=== PATIENT | female | born 1980 | race Two or more races ===

== ENCOUNTER 2016-07-15 02:14 | Emergency (ER) | payer MEDICAID ==
[2016-07-15 05:56] LABS: ABSOLUTE EOSINOPHILS # (AUTO) 0.4 10^3/uL (0.0-0.6); ABSOLUTE LYMPHOCYTES (AUTO) 2.2 10^3/uL (0.5-4.7); ABSOLUTE MONOCYTES (AUTO) 0.7 10^3/uL (0.1-1.4); ABSOLUTE NEUT (AUTO) 4.9 10^3/uL (1.7-8.2); BASOPHILS % (AUTO) 0.5 % (0-2); EOSINOPHILS % (AUTO) 4.6 % (0-6); HEMATOCRIT 39.5 % (36.0-47.0); HEMOGLOBIN 13.7 g/dL (12.0-15.5); HGB HCT DIFFERENCE 1.6; LYMPHOCYTES % (AUTO) 26.2 % (13-45); MEAN CORPUSCULAR HEMOGLOBIN 31.9 pg (27.0-33.4); MEAN CORPUSCULAR HGB CONC 34.6 g/dL (32.0-36.0); MEAN CORPUSCULAR VOLUME 92 fl (80-97); MONOCYTES % (AUTO) 9.1 % (3-13); RED BLOOD COUNT 4.27 10^6/uL (3.72-5.28); RED CELL DISTRIBUTION WIDTH 12.2 % (11.5-14.0); SEGMENTED NEUTROPHILS % (AUTO) 59.6 % (42-78); WHITE BLOOD COUNT 8.3 10^3/uL (4.0-10.5)
[2016-07-15 06:09] LABS: ALANINE AMINOTRANSFERASE 50 U/L (9-52); ALBUMIN 3.7 g/dL (3.5-5.0); ALKALINE PHOSPHATASE 74 U/L (38-126); ANION GAP 11 (5-19); APPEARANCE,URINE CLEAR; ASPARTATE AMINO TRANSFERASE 41 U/L (14-36); BILIRUBIN,TOTAL 0.7 mg/dL (0.2-1.3); BILIRUBIN,URINE NEGATIVE (NEGATIVE); BLOOD UREA NITROGEN 9 mg/dL (7-20); CALCIUM 9.2 mg/dL (8.4-10.2); CARBON DIOXIDE 25 mmol/L (22-30); CHLORIDE 108 mmol/L (98-107); GLUCOSE 105 mg/dL (75-110); GLUCOSE, URINE NEGATIVE (NEGATIVE); KETONES,URINE NEGATIVE (NEGATIVE); LEUKOCYTE ESTERASE,URINE NEGATIVE (NEGATIVE); LIPASE 207.9 U/L (23-300); NITRITE,URINE NEGATIVE (NEGATIVE); POTASSIUM 3.8 mmol/L (3.6-5.0); PROTEIN,URINE NEGATIVE (NEGATIVE); SODIUM 143.6 mmol/L (137-145); TOTAL PROTEIN 6.8 g/dL (6.3-8.2)
--- NOTE | 2016-07-15 06:31 | ER Document Report ---
ED General - General Chief Complaint: Epigastric Pain Stated Complaint: ABDOMINAL PAIN Mode of Arrival: Ambulatory Information source: Patient Notes: 36-year-old female presents with complaints of epigastric abdominal pain since 2002. Patient denies any fevers or chills denies vomiting blood. Patient notes she ate prior to arrival TRAVEL OUTSIDE OF THE [place] IN LAST 30 DAYS: No - HPI Onset: Other Onset/Duration: Intermittent Quality of pain: Cramping Severity: Mild Pain Level: 1 Associated symptoms: Nausea, Vomiting Exacerbated by: Denies Relieved by: Denies Similar symptoms previously: Yes Recently seen / treated by doctor: Yes - Related Data Allergies/Adverse Reactions: aspirin [Aspirin] Allergy (Verified 07/15/16 02:33) Past Medical History - Social History Smoking Status: Current Every Day Smoker Cigarette use (# per day): Yes Chew tobacco use (# tins/day): No Smoking Education Provided: No Frequency of alcohol use: Occasional Drug Abuse: None Family History: Reviewed & Not Pertinent - Past Medical History Cardiac Medical History: Denies: Hx Coronary Artery Disease, Hx Heart Attack, Hx Hypertension Pulmonary Medical History: Denies: Hx Asthma, Hx Bronchitis, Hx COPD, Hx Pneumonia Neurological Medical History: Denies: Hx Cerebrovascular Accident, Hx Seizures Renal/ Medical History: Denies: Hx Peritoneal Dialysis Musculoskeltal Medical History: Reports Hx Arthritis - Painful Rt wrist/hand (? Carpal tunnel syndrome) Past Surgical History: Reports: Hx Cholecystectomy. Denies: Hx Hysterectomy - Immunizations Immunizations up to date: Yes Hx Diphtheria, Pertussis, Tetanus Vaccination: Yes Review of Systems - Review of Systems Notes: REVIEW OF SYSTEMS: CONSTITUTIONAL : Denies fever, chills, or sweats. Denies recent illness. EENT: Denies eye, ear, throat, or mouth pain or symptoms. Denies nasal or sinus congestion or discharge. Denies throat, tongue, or mouth swelling or difficulty swallowing. CARDIOVASCULAR: Denies chest pain. Denies palpitations or racing or irregular heart beat. Denies ankle edema. RESPIRATORY: Denies cough, cold, or chest congestion. Denies shortness of breath, difficulty breathing, or wheezing. GASTROINTESTINAL: Admits to abdominal pain nausea vomiting GENITOURINARY: Denies difficulty urinating, painful urination, burning, frequency, blood in urine, or discharge. FEMALE GENITOURINARY: Denies vaginal bleeding, heavy or abnormal periods, irregular periods. Denies vaginal discharge or odor. MUSCULOSKELETAL: Denies back or neck pain or stiffness. Denies joint pain or swelling. SKIN: Admits to intermittent hives when she has pain HEMATOLOGIC : Denies easy bruising or bleeding. LYMPHATIC: Denies swollen, enlarged glands. NEUROLOGICAL: Denies confusion or altered mental status. Denies passing out or loss of consciousness. Denies dizziness or lightheadedness. Denies headache. Denies weakness or paralysis or loss of use of either side. Denies problems with gait or speech. Denies sensory loss, numbness, or tingling. Denies seizures. PSYCHIATRIC: Denies anxiety or stress. Denies depression, suicidal ideation, or homicidal ideation. ALL OTHER SYSTEMS REVIEWED AND NEGATIVE. Dictation was performed using [employer] voice recognition software PHYSICAL EXAMINATION: GENERAL: Well-appearing, well-nourished and in no acute distress. Patient sleeping comfortably HEAD: Atraumatic, normocephalic. EYES: Pupils equal round and reactive to light, extraocular movements intact, conjunctiva are normal. ENT: Nares patent, oropharynx clear without exudates. Moist mucous membranes. NECK: Normal range of motion, supple without lymphadenopathy LUNGS: Breath sounds clear to auscultation bilaterally and equal. No wheezes rales or rhonchi. HEART: Regular rate and rhythm without murmurs ABDOMEN: Soft, nontender, nondistended abdomen. No guarding, no rebound. No masses appreciated. Female : deferred Musculoskeletal: Normal range of motion, no pitting or edema. No cyanosis. NEUROLOGICAL: Cranial nerves grossly intact. Normal speech, normal gait. Normal sensory, motor exams PSYCH: Normal mood, normal affect. SKIN: Warm, Dry, normal turgor, no rashes or lesions noted. Physical Exam - Vital signs Vitals: Temp Pulse Resp BP Pulse Ox 98.6 F 95 16 122/78 100 07/15/16 02:44 07/15/16 02:44 07/15/16 02:44 07/15/16 02:44 07/15/16 02:44 Course - Re-evaluation Re-evalutation: 07/15/16 06:29 pt noted to have this pain since 2002, has empty bag of [employer] food next ot her sleeping comfortably when awoken. Given lab work is normally do not expect any life-threatening issues. Patient will be given follow-up with her GI physician for reevaluation After performing a Medical Screening Examination, I estimate there is LOW risk for ACUTE APPENDICITIS, BOWEL OBSTRUCTION, ACUTE CHOLECYSTITIS, PERFORATED DIVERTICULITIS, INCARCERATED HERNIA, PANCREATITIS, PELVIC INFLAMMATORY DISEASE, PERFORATED ULCER, ECTOPIC , or TUBO-OVARIAN ABSCESS, thus I consider the discharge disposition reasonable. Also, there is no evidence or peritonitis , sepsis, or toxicity. The patient and I have discussed the diagnosis and risks , and we agree with discharging home with close follow-up with the understanding that symptoms and presentations can change. We also discussed returning to the Emergency Department immediately if new or worsening symptoms occur. We have discussed the symptoms which are most concerning (e.g., bloody stool, fever, changing or worsening pain, vomiting) that necessitate immediate return. 07/15/16 15:28 - Vital Signs Vital signs: Temp Pulse Resp BP Pulse Ox 98.4 F 82 16 108/55 L 99 07/15/16 06:55 07/15/16 06:55 07/15/16 06:55 07/15/16 06:55 07/15/16 06:55 - Laboratory Result Diagrams: 07/15/16 05:45 07/15/16 05:45 Laboratory results interpreted by me: 07/15/16 07/15/16 05:45 05:45 Chloride 108 H AST 41 H Urine Urobilinogen 2.0 H Discharge - Discharge Clinical Impression: Hives Abdominal pain Qualifiers: Abdominal location: epigastric Qualified Code(s): R10.13 - Epigastric pain Condition: Stable Disposition: HOME, SELF-CARE Instructions: Abdominal Pain ([facility]) Prescriptions: Cimetidine [Acid Manager Process] 200 mg PO BID #60 tablet Hydrocodone/Acetaminophen [[place] 5-325 mg Tablet] 1 tab PO Q6 #10 tablet Forms: Return to Work Referrals: JOSIAS PLATA MD [Primary Care Provider] - Follow up as needed NAHUM SENA MD [ACTIVE STAFF] - Follow up tomorrow
[2016-07-15 06:58] VITALS: BP 108/55
== END 2016-07-15 06:59 | disposition home or self-care (01) ==
LOC: ER 02:14
DX: R10.13 Epigastric pain (principal); L50.9 Urticaria, unspecified; R11.2 Nausea with vomiting, unspecified; F17.210 Nicotine dependence, cigarettes, uncomplicated; Z90.49 Acquired absence of other specified parts of digestive tract
CPT/HCPCS: 36415; 80053; 81001; 83690; 84703; 85025; 87086; 87088; 87186; 99284

== ENCOUNTER 2016-09-05 00:15 | Emergency (ER) | payer MEDICAID ==
[2016-09-05 01:35] VITALS: BP 158/101
== END 2016-09-05 03:30 | disposition left against medical advice (07) ==
LOC: ER 00:15
DX: Z53.21 Procedure and treatment not carried out due to patient leaving prior to being seen by health care provider (principal)

== ENCOUNTER 2016-09-06 15:39 | Inpatient (IN) | payer MEDICAID ==
[2016-09-04] MEDS: DICYCLOMINE HCL 20 MG TABLET PO SCH (10:00)
[2016-09-06] MEDS ORDERED: LIDOCAINE 2% VISCOUS SOLN 20 ML UDCUP PO ONE (16:09)
[2016-09-06] MEDS ORDERED: METOCLOPRAMIDE HCL ORAL SOLN 10 MG/10 ML UDCUP PO ONE (16:09)
[2016-09-06] MEDS ORDERED: MAG HYDROX/AL HYDROX/SIMETH SUSP 30 ML UDCUP PO ONE (16:09)
--- NOTE | 2016-09-06 16:20 | ER Document Report ---
ED GI/ - General Chief Complaint: Abdominal Pain Stated Complaint: ABDOMINAL PAIN Time Seen by Provider: 09/06/16 16:05 Notes: The patient is a 36-year-old female, past medical history chronic epigastric pain, history of cholecystectomy, presents with 2 days of her usual epigastric pain and burning. She was taking her cimetidine prescribed to her by her GI doctor without much relief of her symptoms. She has seen multiple GI doctors for this same pain and has had EGDs. She says that Prilosec does not help. In addition, she is feeling slight nausea, but denies vomiting, back pain, urinary symptoms, fevers, chest pain, shortness of breath or headache. Her last menstrual period was 3 weeks ago. TRAVEL OUTSIDE OF THE [place] IN LAST 30 DAYS: No - Related Data Allergies/Adverse Reactions: aspirin [Aspirin] Allergy (Verified 07/15/16 02:33) Past Medical History - General Information source: Patient - Social History Smoking Status: Unknown if Ever Smoked Family History: Reviewed & Not Pertinent Patient has suicidal ideation: No Patient has homicidal ideation: No - Past Medical History Cardiac Medical History: Denies: Hx Coronary Artery Disease, Hx Heart Attack, Hx Hypertension Pulmonary Medical History: Denies: Hx Asthma, Hx Bronchitis, Hx COPD, Hx Pneumonia Neurological Medical History: Denies: Hx Cerebrovascular Accident, Hx Seizures Renal/ Medical History: Denies: Hx Peritoneal Dialysis GI Medical History: Musculoskeltal Medical History: Reports Hx Arthritis - Painful Rt wrist/hand (? Carpal tunnel syndrome) Infectious Medical History: Past Surgical History: Reports: Hx Cholecystectomy. Denies: Hx Hysterectomy - Immunizations Immunizations up to date: Yes Hx Diphtheria, Pertussis, Tetanus Vaccination: Yes Review of Systems - Review of Systems Notes: REVIEW OF SYSTEMS: CONSTITUTIONAL: -fevers, -chills EENT: -eye pain, -difficulty swallowing, -nasal congestion CARDIOVASCULAR:-chest pain, -syncope. RESPIRATORY: -cough, -SOB GASTROINTESTINAL: +abdominal pain, +nausea, -vomiting, -diarrhea GENITOURINARY: -dysuria, -hematuria MUSCULOSKELETAL: -back pain, -neck pain SKIN: -rash or skin lesions. HEMATOLOGIC: -easy bruising or bleeding. LYMPHATIC: -swollen, enlarged glands. NEUROLOGICAL: -altered mental status or loss of consciousness, -headache, - neurologic symptoms PSYCHIATRIC: -anxiety, -depression. ALL OTHER SYSTEMS REVIEWED AND NEGATIVE. Physical Exam - Vital signs Vitals: Temp 97.8 F 09/06/16 15:51 - Notes Notes: PHYSICAL EXAMINATION: GENERAL: Well-appearing, well-nourished and in no acute distress. HEAD: Atraumatic, normocephalic. EYES: Pupils equal round and reactive to light, extraocular movements intact, sclera anicteric, conjunctiva are normal. ENT: nares patent, oropharynx clear without exudates. Moist mucous membranes. NECK: Normal range of motion, supple without lymphadenopathy LUNGS: Breath sounds clear to auscultation bilaterally and equal. No wheezes rales or rhonchi. HEART: Regular rate and rhythm without murmurs ABDOMEN: Soft, epigastric tenderness, normoactive bowel sounds. No guarding, no rebound. No masses appreciated. EXTREMITIES: Normal range of motion, no pitting or edema. No cyanosis. NEUROLOGICAL: Cranial nerves grossly intact. Normal speech, normal gait. Normal sensory, motor, and reflex exams. PSYCH: Normal mood, normal affect. SKIN: Warm, Dry, normal turgor, no rashes or lesions noted. Course - Re-evaluation Re-evalutation: Patient's labs show very elevated lipase and liver function tests. She does not have a gallbladder. However, will obtain an ultrasound of her right upper quadrant to assess for other causes of pancreatitis. Will begin IV fluids and pain medicine and keep patient NPO. Patient needs to be transferred to main side of the ER for further evaluation. - Vital Signs Vital signs: Temp Pulse Resp BP Pulse Ox 97.8 F 69 16 122/72 100 09/06/16 16:07 09/06/16 16:07 09/06/16 16:07 09/06/16 16:07 09/06/16 16:07 - Laboratory Result Diagrams: 09/06/16 16:41 09/06/16 17:32 Laboratory results interpreted by me: 09/06/16 09/06/16 16:41 17:32 WBC 12.0 H Plt Count 136 L Absolute Neutrophils 8.6 H Total Bilirubin 1.7 H Direct Bilirubin 1.3 H AST 213 H ALT 350 H Alkaline Phosphatase 153 H Lipase 46297.0 H Discharge - Discharge Clinical Impression: Pancreatitis Qualifiers: Chronicity: acute Pancreatitis type: unspecified pancreatitis type Acute pancreatitis complication: unspecified Qualified Code(s): K85.90 - Acute pancreatitis without necrosis or infection, unspecified
[2016-09-06 16:59] LABS: ABSOLUTE EOSINOPHILS # (AUTO) 0.5 10^3/uL (0.0-0.6); ABSOLUTE LYMPHOCYTES (AUTO) 1.7 10^3/uL (0.5-4.7); ABSOLUTE MONOCYTES (AUTO) 1.2 10^3/uL (0.1-1.4); ABSOLUTE NEUT (AUTO) 8.6 10^3/uL (1.7-8.2); BASOPHILS % (AUTO) 0.3 % (0-2); EOSINOPHILS % (AUTO) 4.3 % (0-6); HEMATOCRIT 40.2 % (36.0-47.0); HEMOGLOBIN 13.2 g/dL (12.0-15.5); HGB HCT DIFFERENCE -0.6; LYMPHOCYTES % (AUTO) 13.9 % (13-45); MEAN CORPUSCULAR HEMOGLOBIN 31.1 pg (27.0-33.4); MEAN CORPUSCULAR HGB CONC 32.8 g/dL (32.0-36.0); MEAN CORPUSCULAR VOLUME 95 fl (80-97); MONOCYTES % (AUTO) 10.2 % (3-13); RED BLOOD COUNT 4.24 10^6/uL (3.72-5.28); RED CELL DISTRIBUTION WIDTH 12.2 % (11.5-14.0); SEGMENTED NEUTROPHILS % (AUTO) 71.3 % (42-78)
[2016-09-06 18:05] LABS: ALANINE AMINOTRANSFERASE 350 U/L (9-52); ALBUMIN 3.9 g/dL (3.5-5.0); ALKALINE PHOSPHATASE 153 U/L (38-126); ANION GAP 10 (5-19); ASPARTATE AMINO TRANSFERASE 213 U/L (14-36); BILIRUBIN,DIRECT 1.3 mg/dL (0.0-0.4); BILIRUBIN,TOTAL 1.7 mg/dL (0.2-1.3); BLOOD UREA NITROGEN 8 mg/dL (7-20); CARBON DIOXIDE 26 mmol/L (22-30); CHLORIDE 105 mmol/L (98-107); CREATININE RESULT 0.64 mg/dL (0.52-1.25); GLUCOSE 109 mg/dL (75-110); POTASSIUM 4.2 mmol/L (3.6-5.0)
[2016-09-06] MEDS ORDERED: MORPHINE SULFATE 10 MG/ML INJ IV ONE (19:03)
[2016-09-06] MEDS ORDERED: NORMAL SALINE 1000 ML 1,000 ML IV ONE ×2 (19:03→20:52)
--- NOTE | 2016-09-06 20:50 | ER Document Report ---
ED GI/ - General Chief Complaint: Abdominal Pain Stated Complaint: ABDOMINAL PAIN Time Seen by Provider: 09/06/16 16:05 Notes: Patient is a 36-year-old female that comes to the emergency department for chief complaint of pain in her upper abdomen, pain is worse in the middle and also radiates to both sides. She states she has had intermittent abdominal pains for several months, she states over the past 2 days the pain has become much worse, she vomited yesterday, she has not been able to eat anything today. She reports a normal bowel movement 2 days ago, denies black or bloody stools. She has had a cholecystectomy. She denies any daily medications other than what she takes as needed for anxiety. She reports drinking only occasionally, states her last alcohol intake was 2 weeks ago. TRAVEL OUTSIDE OF THE [place] IN LAST 30 DAYS: No - Related Data Allergies/Adverse Reactions: aspirin [Aspirin] Allergy (Verified 09/06/16 22:00) Home Medications: Current Home Medications No Home Medications 09/06/16 [History] Past Medical History - General Information source: Patient - Social History Smoking Status: Never Smoker Frequency of alcohol use: Occasional Drug Abuse: None Lives with: Family Family History: Reviewed & Not Pertinent Patient has suicidal ideation: No Patient has homicidal ideation: No - Past Medical History Cardiac Medical History: Denies: Hx Coronary Artery Disease, Hx Heart Attack, Hx Hypertension Pulmonary Medical History: Denies: Hx Asthma, Hx Bronchitis, Hx COPD, Hx Pneumonia Neurological Medical History: Denies: Hx Cerebrovascular Accident, Hx Seizures Renal/ Medical History: Denies: Hx Peritoneal Dialysis GI Medical History: Musculoskeltal Medical History: Reports Hx Arthritis - Painful Rt wrist/hand (? Carpal tunnel syndrome) Psychiatric Medical History: Reports: Hx Anxiety Infectious Medical History: Past Surgical History: Reports: Hx Cholecystectomy. Denies: Hx Hysterectomy - Immunizations Immunizations up to date: Yes Hx Diphtheria, Pertussis, Tetanus Vaccination: Yes Review of Systems - Review of Systems Constitutional: No symptoms reported EENT: No symptoms reported Cardiovascular: No symptoms reported Respiratory: No symptoms reported Gastrointestinal: See HPI Genitourinary: No symptoms reported Female Genitourinary: No symptoms reported Musculoskeletal: No symptoms reported Skin: No symptoms reported Hematologic/Lymphatic: No symptoms reported Neurological/Psychological: No symptoms reported Physical Exam - Vital signs Vitals: Temp 97.8 F 09/06/16 15:51 Interpretation: Normal - General General appearance: Anxious In distress: Mild - patient appears mildly uncomfortable - HEENT Head: Normocephalic, Atraumatic Eyes: Normal Conjunctiva: Normal Extraocular movements intact: Yes Eyelashes: Normal Pupils: PERRL Mouth/Lips: Normal Mucous membranes: Normal Pharynx: Normal Neck: Normal - Respiratory Respiratory status: No respiratory distress Chest status: Nontender Breath sounds: Normal. No: Decreased air movement, Wheezing Chest palpation: Normal - Cardiovascular Rhythm: Regular. No: Tachycardia Heart sounds: Normal auscultation, S1 appreciated, S2 appreciated Murmur: No - Abdominal Inspection: Normal Distension: No distension Bowel sounds: Normal Tenderness: Tender - tender in right, mid, and left upper abdominal areas; lower abdomen benign - Back Back: Normal, Nontender. No: Tender, CVA tenderness - Extremities General upper extremity: Normal inspection, Nontender, Normal color, Normal ROM , Normal temperature General lower extremity: Normal inspection, Nontender, Normal color, Normal ROM , Normal temperature, Normal weight bearing. No: Janeth's sign - Neurological Neuro grossly intact: Yes Cognition: Normal Orientation: AAOx4 Fede Coma Scale Eye Opening: Spontaneous [place] Coma Scale Verbal: Oriented [place] Coma Scale Motor: Obeys Commands Fede Coma Scale Total: 15 Speech: Normal Motor strength normal: LUE, RUE, LLE, RLE Sensory: Normal - Psychological Associated symptoms: Normal affect, Normal mood - Skin Skin Temperature: Warm Skin Moisture: Dry Skin Color: Normal Course - Re-evaluation Re-evalutation: Mild leukocytosis with no bandemia, no tachycardia, no hypotension. Chemistry shows elevated ALT greater than AST, for a mildly elevated direct and indirect bilirubin, mildly elevated alkaline phosphatase. Lipase is significantly elevated at greater than 18,000. Patient has epigastric pains but no other abnormalities noted on exam. Denies alcohol use in 2 weeks. Ultrasound shows status post cholecystectomy, no dilation of common bile duct, no abnormality seen. Urinalysis obtained and unremarkable, hCG negative. Discussed with Dr. Rae, recommends admission to the hospital for pancreatitis. Discussed with Dr. Angela, recommends CT abd/pelvis to rule out any additional abnormality due to very elevated lipase. CT showing no acute surgical abnormality or other noteable findings. Patient admitted to telemetry. Patient states agreement with plan. - Vital Signs Vital signs: Temp Pulse Resp BP Pulse Ox 98.5 F 60 16 113/70 100 09/06/16 22:44 09/06/16 22:44 09/06/16 22:44 09/06/16 22:44 09/06/16 22:44 - Laboratory Result Diagrams: 09/06/16 16:41 09/06/16 17:32 Laboratory results interpreted by me: 09/06/16 09/06/16 16:41 17:32 WBC 12.0 H Plt Count 136 L Absolute Neutrophils 8.6 H Total Bilirubin 1.7 H Direct Bilirubin 1.3 H AST 213 H ALT 350 H Alkaline Phosphatase 153 H Lipase 86302.0 H Discharge - Discharge Clinical Impression: Epigastric pain Pancreatitis Qualifiers: Chronicity: acute Pancreatitis type: unspecified pancreatitis type Acute pancreatitis complication: unspecified Qualified Code(s): K85.90 - Acute pancreatitis without necrosis or infection, unspecified Condition: Stable Disposition: ADMITTED INPATIENT Admitting Provider: Hospitalist Unit Admitted: Telemetry Referrals: JESSICA FIELD MD [Primary Care Provider] - Follow up as needed
[2016-09-06 22:00] LABS: APPEARANCE,URINE CLEAR; BILIRUBIN,URINE NEGATIVE (NEGATIVE); GLUCOSE, URINE NEGATIVE (NEGATIVE); KETONES,URINE NEGATIVE (NEGATIVE); LEUKOCYTE ESTERASE,URINE NEGATIVE (NEGATIVE); NITRITE,URINE NEGATIVE (NEGATIVE); PROTEIN,URINE NEGATIVE (NEGATIVE); URINE SPECIFIC GRAVITY 1.002; UROBILINOGEN,URINE NEGATIVE mg/dL (<2.0)
[2016-09-07] MEDS ORDERED: MAGNESIUM HYDROXIDE SUSP 30 ML UDCUP PO PRN (02:24)
[2016-09-07] MEDS ORDERED: ACETAMINOPHEN 325 MG TABLET PO PRN (02:24)
[2016-09-07] MEDS ORDERED: NORMAL SALINE 1000 ML 1,000 ML IV PRN (02:26)
[2016-09-07] MEDS ORDERED: MORPHINE SULFATE 10 MG/ML INJ IV PRN (02:27)
[2016-09-07 03:00] LABS: ABSOLUTE EOSINOPHILS # (AUTO) 0.4 10^3/uL (0.0-0.6); ABSOLUTE LYMPHOCYTES (AUTO) 2.8 10^3/uL (0.5-4.7); ABSOLUTE MONOCYTES (AUTO) 0.7 10^3/uL (0.1-1.4); ABSOLUTE NEUT (AUTO) 4.7 10^3/uL (1.7-8.2); BASOPHILS % (AUTO) 0.4 % (0-2); EOSINOPHILS % (AUTO) 5.1 % (0-6); HEMATOCRIT 34.9 % (36.0-47.0); HEMOGLOBIN 11.7 g/dL (12.0-15.5); HGB HCT DIFFERENCE 0.2; LYMPHOCYTES % (AUTO) 32.6 % (13-45); MEAN CORPUSCULAR HEMOGLOBIN 31.5 pg (27.0-33.4); MEAN CORPUSCULAR HGB CONC 33.6 g/dL (32.0-36.0); MEAN CORPUSCULAR VOLUME 94 fl (80-97); RED BLOOD COUNT 3.72 10^6/uL (3.72-5.28); RED CELL DISTRIBUTION WIDTH 11.9 % (11.5-14.0); SEGMENTED NEUTROPHILS % (AUTO) 53.9 % (42-78); WHITE BLOOD COUNT 8.6 10^3/uL (4.0-10.5)
[2016-09-07] MEDS: KETOROLAC TROMETHAMINE INJ/PF 30 MG/1 ML SDV IV PRN ×2 (03:19→13:42)
[2016-09-07 04:36] LABS: CHOLESTEROL 139.17 mg/dL (0-200); CREATINE KINASE 64 U/L (30-135); Direct HDL 74 mg/dL (>40); TRIGLYCERIDES 44 mg/dL (<150)
[2016-09-07 04:38] LABS: ALANINE AMINOTRANSFERASE 266 U/L (9-52); ALBUMIN 3.3 g/dL (3.5-5.0); ALKALINE PHOSPHATASE 138 U/L (38-126); ANION GAP 9 (5-19); ASPARTATE AMINO TRANSFERASE 123 U/L (14-36); BILIRUBIN,DIRECT 0.4 mg/dL (0.0-0.4); BILIRUBIN,TOTAL 0.6 mg/dL (0.2-1.3); BLOOD UREA NITROGEN 6 mg/dL (7-20); CALCIUM 8.1 mg/dL (8.4-10.2); CARBON DIOXIDE 23 mmol/L (22-30); CHLORIDE 109 mmol/L (98-107); CREATININE RESULT 0.57 mg/dL (0.52-1.25); GLUCOSE 91 mg/dL (75-110); POTASSIUM 4.1 mmol/L (3.6-5.0); SODIUM 140.6 mmol/L (137-145); TOTAL PROTEIN 6.3 g/dL (6.3-8.2)
[2016-09-07 04:47] LABS: DIRECT LDL 40 mg/dL (<100)
[2016-09-07] MEDS: HEPARIN SOD (PORCINE) 5,000 UNIT/ML 1 ML SYRINGE SUBCUT SCH ×3 (05:06→21:10)
--- NOTE | 2016-09-07 05:29 | PDOC H&P ---
History of Present Illness Admission Date/PCP: 09/07/16 02:24 JESSICA FIELD MD Patient complains of: Abdominal pain History of Present Illness: SIERRA SOOD is a 36 year old female with past medical history of esophagitis, gastritis, GERD and gallstone pancreatitis status post cholecystectomy 2 years ago. Been her usual state of health until approximately a month ago noting intermittent episodes of dull and boring abdominal pain which became acutely worse over the last 6 hours prompting to seek evaluation emergency room. She is also had intermittent episodes of anxiety, and hives but no loose stools or headache. She is found to have abnormal LFTs, and a lipase of 18,[address] notable for intrahepatic and extrahepatic ductal dilatation. She started on IV fluids and morphine referred to the hospitalist for admission. Patient admits her pain is worse now than prior to her cholecystectomy. And admits To very rare alcohol use without binging otherwise no recent viral prodrome, or new medications other than occasional NSAIDs. Past Medical History Cardiac Medical History: Denies: Coronary Artery Disease, Myocardial Infarction, Hypertension Pulmonary Medical History: Denies: Asthma, Bronchitis, Chronic Obstructive Pulmonary Disease (COPD), Pneumonia Neurological Medical History: Denies: Seizures GI Medical History: Reports: Other - Gallstone pancreatitis Musculoskeltal Medical History: Reports: Arthritis - Painful Rt wrist/hand (? Carpal tunnel syndrome) Psychiatric Medical History: Reports: None Hematology: Denies: Anemia, Sickle Cell Disease Past Surgical History Past Surgical History: Reports: Cholecystectomy Denies: Amputation, Hysterectomy Social History Lives with: Family Smoking Status: Current Every Day Smoker Cigarettes Packs Per Day: 0.3 Number of Years Smokin Frequency of Alcohol Use: Rare Hx Recreational Drug Use: No Drugs: None Hx Prescription Drug Abuse: No - Advance Directive Resuscitation Status: Full Code Family History Family History: Hypertension Parental Family History Reviewed: Yes Children Family History Reviewed: Yes Sibling(s) Family History Reviewed.: Yes Medication/Allergy Home Medications: No Home Medications 09/06/16 Allergies/Adverse Reactions: aspirin [Aspirin] Allergy (Verified 09/06/16 22:00) Review of Systems Constitutional: PRESENT: as per HPI, other - Episodes of anxiety and hives with unclear association. ABSENT: chills, fever(s), headache(s), weight gain, weight loss Eyes: ABSENT: visual disturbances Ears: ABSENT: hearing changes Cardiovascular: ABSENT: chest pain, dyspnea on exertion, edema, orthropnea, palpitations Respiratory: ABSENT: cough, hemoptysis Gastrointestinal: ABSENT: abdominal pain, constipation, diarrhea, hematemesis, hematochezia, nausea, vomiting Genitourinary: ABSENT: dysuria, hematuria Musculoskeletal: ABSENT: joint swelling Integumentary: ABSENT: rash, wounds Neurological: ABSENT: abnormal gait, abnormal speech, confusion, dizziness, focal weakness, syncope Psychiatric: PRESENT: anxiety. ABSENT: depression, homidical ideation, suicidal ideation Endocrine: ABSENT: cold intolerance, heat intolerance, polydipsia, polyuria Hematologic/Lymphatic: ABSENT: easy bleeding, easy bruising Physical Exam Vital Signs: Temp Pulse Resp BP Pulse Ox 98.4 F 66 18 129/85 H 100 09/07/16 03:27 09/07/16 03:27 09/07/16 03:27 09/07/16 03:27 09/07/16 03:27 Intake & Output 09/05/16 09/06/16 09/07/16 11:59 11:59 11:59 Weight 68.5 kg General appearance: PRESENT: no acute distress, well-developed, well-nourished Head exam: PRESENT: atraumatic, normocephalic Eye exam: PRESENT: conjunctiva pink, EOMI, PERRLA. ABSENT: scleral icterus Ear exam: PRESENT: normal external ear exam Mouth exam: PRESENT: moist, tongue midline Neck exam: ABSENT: carotid bruit, JVD, lymphadenopathy, thyromegaly Respiratory exam: PRESENT: clear to auscultation reji. ABSENT: rales, rhonchi, wheezes Cardiovascular exam: PRESENT: RRR. ABSENT: diastolic murmur, rubs, systolic murmur Pulses: PRESENT: normal dorsalis pedis pul Vascular exam: PRESENT: normal capillary refill GI/Abdominal exam: PRESENT: hyperactive bowel sounds, normal bowel sounds, soft , tenderness - Epigastric pain without guarding. ABSENT: distended, guarding, mass, organolmegaly, rebound Rectal exam: PRESENT: deferred Extremities exam: PRESENT: full ROM. ABSENT: calf tenderness, clubbing, pedal edema Neurological exam: PRESENT: alert, awake, oriented to person, oriented to place , oriented to time, oriented to situation, CN II-XII grossly intact. ABSENT: motor sensory deficit Psychiatric exam: PRESENT: appropriate affect, normal mood. ABSENT: homicidal ideation, suicidal ideation Skin exam: PRESENT: dry, intact, warm. ABSENT: cyanosis, rash Results Laboratory Results: 09/07/16 02:48 09/07/16 02:48 09/07/16 09/07/16 09/07/16 02:48 02:48 02:48 WBC 8.6 RBC 3.72 Hgb 11.7 L Hct 34.9 L MCV 94 MCH 31.5 MCHC 33.6 RDW 11.9 Plt Count 120 L Seg Neutrophils % 53.9 Lymphocytes % 32.6 Monocytes % 8.0 Eosinophils % 5.1 Basophils % 0.4 Absolute Neutrophils 4.7 Absolute Lymphocytes 2.8 Absolute Monocytes 0.7 Absolute Eosinophils 0.4 Absolute Basophils 0.0 Sodium Potassium Chloride Carbon Dioxide Anion Gap BUN Creatinine Est GFR ( Amer) Est GFR (Non-Af Amer) Glucose Calcium Total Bilirubin GGT 260 H AST ALT Alkaline Phosphatase Total Protein Albumin Triglycerides 44 Cholesterol 139.17 LDL Cholesterol Direct 40 VLDL Cholesterol 9.0 L HDL Cholesterol 74 09/07/16 02:48 WBC RBC Hgb Hct MCV MCH MCHC RDW Plt Count Seg Neutrophils % Lymphocytes % Monocytes % Eosinophils % Basophils % Absolute Neutrophils Absolute Lymphocytes Absolute Monocytes Absolute Eosinophils Absolute Basophils Sodium 140.6 Potassium 4.1 Chloride 109 H Carbon Dioxide 23 Anion Gap 9 BUN 6 L Creatinine 0.57 Est GFR ( Amer) > 60 Est GFR (Non-Af Amer) > 60 Glucose 91 Calcium 8.1 L Total Bilirubin 0.6 GGT AST 123 H ALT 266 H Alkaline Phosphatase 138 H Total Protein 6.3 Albumin 3.3 L Triglycerides Cholesterol LDL Cholesterol Direct VLDL Cholesterol HDL Cholesterol 09/07/16 02:48 Creatine Kinase 64 Impressions: Abdomen Ultrasound 09/06/16 19:51 IMPRESSION: NO ACUTE FINDINGS WITHIN THE RIGHT UPPER QUADRANT. NO SIGNIFICANT CHANGE FROM PRIOR STUDY. Abdomen/Pelvis CT 09/06/16 22:51 IMPRESSION: NO ACUTE INFLAMMATORY CHANGE IDENTIFIED WITHIN THE ABDOMEN OR PELVIS. STABLE DEGREE OF BILIARY AND PANCREATIC DUCTAL DILATATION STATUS POST CHOLECYSTECTOMY. 3.6 CM RIGHT OVARIAN CYST PRESUMABLY PHYSIOLOGIC. CORRELATE WITH SYMPTOMS/ PELVIC EXAM. Assessment & Plan - Diagnosis (1) Pancreatitis Qualifiers: Chronicity: acute Pancreatitis type: unspecified pancreatitis type Acute pancreatitis complication: unspecified Qualified Code(s): K85.90 - Acute pancreatitis without necrosis or infection, unspecified Is this a current diagnosis for this admission?: YesPlan: Intermittently chronic with acute flare. Previous concerned for gallstone pancreatitis with subsequent cholecystectomy [address] reveals intra-and extra hepatic ductal dilatation, no pancreatic necrosis. Associated symptoms of anxiety, erosive gastritis, and hives I'm concerned for possibility of a Zolliner hazel syndrome. I'll obtain consultation with gastroenterology. Keep nothing by mouth with symptomatically management obtaining lipid profile, and consider a serum gastrin level. (2) GERD (gastroesophageal reflux disease) Is this a current diagnosis for this admission?: YesPlan: PPI (3) Esophagitis Is this a current diagnosis for this admission?: YesPlan: PPI (4) Anxiety Is this a current diagnosis for this admission?: YesPlan: Symptomatic management (5) Epigastric pain Is this a current diagnosis for this admission?: YesPlan: Symptomatic management (6) Abnormal LFTs Is this a current diagnosis for this admission?: YesPlan: Will obtain hepatitis profile and gastroenterology consult with repeat LFTs - Time Time Spent: 50 to 70 Minutes - Inpatient Certification Medical Necessity: Need Close Monitoring Due to Risk of Patient Decompensation
[2016-09-07] MEDS: ONDANSETRON HCL INJ/PF 4 MG/2 ML SDV IV PRN ×3 (09:09→22:52)
[2016-09-07] MEDS: DOCUSATE SODIUM 100 MG CAPSULE PO SCH ×2 (13:43→18:00)
--- NOTE | 2016-09-07 14:37 | PDOC PROGRESS REPORT ---
Subjective Progress Note for:: 09/07/16 Subjective:: Patient is seen on morning rounds. She is resting in bed. She is complaining of mild diffuse, abdominal pain and nausea at the present time. She denies any vomiting or diarrhea. She states abdominal pain has improved since admission. She denies any chest pain, shortness of breath or dyspnea. Physical Exam Vital Signs: Temp Pulse Resp BP Pulse Ox 98.4 F 66 18 129/85 H 100 09/07/16 03:27 09/07/16 03:27 09/07/16 03:27 09/07/16 03:27 09/07/16 03:27 Intake & Output 09/06/16 09/07/16 09/08/16 06:59 06:59 06:59 Weight 68.5 kg General appearance: PRESENT: no acute distress, well-developed, well-nourished Head exam: PRESENT: atraumatic, normocephalic Eye exam: PRESENT: conjunctiva pink, EOMI, PERRLA. ABSENT: scleral icterus Ear exam: PRESENT: normal external ear exam Mouth exam: PRESENT: moist, tongue midline Neck exam: ABSENT: carotid bruit, JVD, lymphadenopathy, thyromegaly Respiratory exam: PRESENT: clear to auscultation reji. ABSENT: rales, rhonchi, wheezes Cardiovascular exam: PRESENT: RRR. ABSENT: diastolic murmur, rubs, systolic murmur GI/Abdominal exam: PRESENT: normal bowel sounds - epigastric, soft, tenderness Rectal exam: PRESENT: deferred Extremities exam: PRESENT: full ROM. ABSENT: calf tenderness, clubbing, pedal edema Neurological exam: PRESENT: alert, awake, oriented to person, oriented to place , oriented to time, oriented to situation, CN II-XII grossly intact. ABSENT: motor sensory deficit Psychiatric exam: PRESENT: appropriate affect, normal mood. ABSENT: homicidal ideation, suicidal ideation Skin exam: PRESENT: dry, intact, warm. ABSENT: cyanosis, rash Results Laboratory Results: 09/07/16 02:48 09/07/16 02:48 09/07/16 09/07/16 09/07/16 02:48 02:48 02:48 WBC 8.6 RBC 3.72 Hgb 11.7 L Hct 34.9 L MCV 94 MCH 31.5 MCHC 33.6 RDW 11.9 Plt Count 120 L Seg Neutrophils % 53.9 Lymphocytes % 32.6 Monocytes % 8.0 Eosinophils % 5.1 Basophils % 0.4 Absolute Neutrophils 4.7 Absolute Lymphocytes 2.8 Absolute Monocytes 0.7 Absolute Eosinophils 0.4 Absolute Basophils 0.0 Sodium Potassium Chloride Carbon Dioxide Anion Gap BUN Creatinine Est GFR ( Amer) Est GFR (Non-Af Amer) Glucose Calcium Total Bilirubin GGT 260 H AST ALT Alkaline Phosphatase Total Protein Albumin Triglycerides 44 Cholesterol 139.17 LDL Cholesterol Direct 40 VLDL Cholesterol 9.0 L HDL Cholesterol 74 09/07/16 02:48 WBC RBC Hgb Hct MCV MCH MCHC RDW Plt Count Seg Neutrophils % Lymphocytes % Monocytes % Eosinophils % Basophils % Absolute Neutrophils Absolute Lymphocytes Absolute Monocytes Absolute Eosinophils Absolute Basophils Sodium 140.6 Potassium 4.1 Chloride 109 H Carbon Dioxide 23 Anion Gap 9 BUN 6 L Creatinine 0.57 Est GFR ( Amer) > 60 Est GFR (Non-Af Amer) > 60 Glucose 91 Calcium 8.1 L Total Bilirubin 0.6 GGT AST 123 H ALT 266 H Alkaline Phosphatase 138 H Total Protein 6.3 Albumin 3.3 L Triglycerides Cholesterol LDL Cholesterol Direct VLDL Cholesterol HDL Cholesterol 09/07/16 02:48 Creatine Kinase 64 Impressions: Abdomen Ultrasound 09/06/16 19:51 IMPRESSION: NO ACUTE FINDINGS WITHIN THE RIGHT UPPER QUADRANT. NO SIGNIFICANT CHANGE FROM PRIOR STUDY. Abdomen/Pelvis CT 09/06/16 22:51 IMPRESSION: NO ACUTE INFLAMMATORY CHANGE IDENTIFIED WITHIN THE ABDOMEN OR PELVIS. STABLE DEGREE OF BILIARY AND PANCREATIC DUCTAL DILATATION STATUS POST CHOLECYSTECTOMY. 3.6 CM RIGHT OVARIAN CYST PRESUMABLY PHYSIOLOGIC. CORRELATE WITH SYMPTOMS/ PELVIC EXAM. Abdomen MRI 09/07/16 00:00 IMPRESSION: Again there is prominence of the common bile duct and the more central intrahepatic biliary radicals unchanged from the recent CT scan. Again there is prominence of the pancreatic duct unchanged from the previous study. No intraluminal filling defect to confirm a common bile duct stone is seen. These changes are presumably related to the patient being post cholecystectomy. Other findings as noted above Assessment & Plan - Diagnosis (1) Pancreatitis Qualifiers: Chronicity: acute Pancreatitis type: unspecified pancreatitis type Acute pancreatitis complication: unspecified Qualified Code(s): K85.90 - Acute pancreatitis without necrosis or infection, unspecified Is this a current diagnosis for this admission?: YesPlan: Will obtain MRCP to rule out bile duct stone, NPO , IV hydration, pain control and antiemetics (2) Abnormal LFTs Is this a current diagnosis for this admission?: YesPlan: Improving (3) Epigastric pain Is this a current diagnosis for this admission?: YesPlan: Analgesics prn (4) Anxiety Is this a current diagnosis for this admission?: YesPlan: Continue anxiolytics (5) GERD (gastroesophageal reflux disease) Is this a current diagnosis for this admission?: YesPlan: Continue PPI therapy - Time Time Spent with patient: 25-34 minutes Critical Time spent with patient: 15-24 minutes Medications reviewed and adjusted accordingly: Yes
[2016-09-07] MEDS: NORMAL SALINE 1000 ML 1,000 ML IV PRN (18:35)
[2016-09-07] MEDS: MORPHINE SULFATE 10 MG/ML INJ IV PRN (22:52)
[2016-09-08] MEDS: HEPARIN SOD (PORCINE) 5,000 UNIT/ML 1 ML SYRINGE SUBCUT SCH ×3 (05:09→21:14)
[2016-09-08 06:14] LABS: ABSOLUTE EOSINOPHILS # (AUTO) 0.3 10^3/uL (0.0-0.6); ABSOLUTE LYMPHOCYTES (AUTO) 2.5 10^3/uL (0.5-4.7); ABSOLUTE MONOCYTES (AUTO) 0.5 10^3/uL (0.1-1.4); ABSOLUTE NEUT (AUTO) 2.5 10^3/uL (1.7-8.2); BASOPHILS % (AUTO) 0.7 % (0-2); HEMATOCRIT 32.7 % (36.0-47.0); HEMOGLOBIN 11.1 g/dL (12.0-15.5); HGB HCT DIFFERENCE 0.6; LYMPHOCYTES % (AUTO) 42.8 % (13-45); MEAN CORPUSCULAR HEMOGLOBIN 31.8 pg (27.0-33.4); MEAN CORPUSCULAR VOLUME 94 fl (80-97); MONOCYTES % (AUTO) 8.8 % (3-13); RED BLOOD COUNT 3.49 10^6/uL (3.72-5.28); RED CELL DISTRIBUTION WIDTH 12.1 % (11.5-14.0); SEGMENTED NEUTROPHILS % (AUTO) 42.7 % (42-78); WHITE BLOOD COUNT 5.9 10^3/uL (4.0-10.5)
[2016-09-08 06:33] LABS: ALANINE AMINOTRANSFERASE 159 U/L (9-52); ALBUMIN 2.7 g/dL (3.5-5.0); ALKALINE PHOSPHATASE 109 U/L (38-126); ANION GAP 5 (5-19); ASPARTATE AMINO TRANSFERASE 45 U/L (14-36); BILIRUBIN,DIRECT 0.3 mg/dL (0.0-0.4); BILIRUBIN,TOTAL 0.6 mg/dL (0.2-1.3); BLOOD UREA NITROGEN 6 mg/dL (7-20); CARBON DIOXIDE 24 mmol/L (22-30); CHLORIDE 112 mmol/L (98-107); CREATININE RESULT 0.63 mg/dL (0.52-1.25); GLUCOSE 78 mg/dL (75-110); POTASSIUM 4.5 mmol/L (3.6-5.0); SODIUM 140.8 mmol/L (137-145); TOTAL PROTEIN 5.5 g/dL (6.3-8.2)
[2016-09-08 06:41] LABS: LIPASE 3735.3 U/L (23-300)
[2016-09-08] MEDS: KETOROLAC TROMETHAMINE INJ/PF 30 MG/1 ML SDV IV PRN ×2 (08:10→18:41)
--- NOTE | 2016-09-08 11:30 | PDOC PROGRESS REPORT ---
Subjective Progress Note for:: 09/08/16 Subjective:: Patient is seen on morning rounds. She is resting in bed. She is states abdominal pain is improved from yesterday and she is no longer nauseated. She denies any vomiting or diarrhea. She denies any chest pain, shortness of breath or dyspnea. Rest of review of systems are negative. Physical Exam Vital Signs: Temp Pulse Resp BP Pulse Ox 98.1 F 59 L 18 119/65 100 09/08/16 00:46 09/08/16 00:46 09/08/16 00:46 09/08/16 00:46 09/08/16 00:46 Intake & Output 09/07/16 09/08/16 09/09/16 06:59 06:59 06:59 Intake Total 2900 Balance 2900 Weight 68.5 kg 67.8 kg General appearance: PRESENT: no acute distress, well-developed, well-nourished Head exam: PRESENT: atraumatic, normocephalic Eye exam: PRESENT: conjunctival injection Ear exam: PRESENT: normal external ear exam Mouth exam: PRESENT: moist, tongue midline Neck exam: ABSENT: carotid bruit, JVD, lymphadenopathy, thyromegaly Respiratory exam: PRESENT: clear to auscultation reji. ABSENT: rales, rhonchi, wheezes Cardiovascular exam: PRESENT: RRR. ABSENT: diastolic murmur, rubs, systolic murmur Pulses: PRESENT: normal dorsalis pedis pul Vascular exam: PRESENT: normal capillary refill GI/Abdominal exam: PRESENT: normal bowel sounds - epigastric area, soft, tenderness Rectal exam: PRESENT: deferred Extremities exam: PRESENT: full ROM. ABSENT: calf tenderness, clubbing, pedal edema Neurological exam: PRESENT: alert, awake, oriented to person, oriented to place , oriented to time, oriented to situation, CN II-XII grossly intact. ABSENT: motor sensory deficit Psychiatric exam: PRESENT: appropriate affect, normal mood. ABSENT: homicidal ideation, suicidal ideation Skin exam: PRESENT: dry, intact, warm. ABSENT: cyanosis, rash Results Laboratory Results: 09/08/16 05:29 09/08/16 05:29 09/08/16 09/08/16 05:29 05:29 WBC 5.9 RBC 3.49 L Hgb 11.1 L Hct 32.7 L MCV 94 MCH 31.8 MCHC 34.0 RDW 12.1 Plt Count 119 L Seg Neutrophils % 42.7 Lymphocytes % 42.8 Monocytes % 8.8 Eosinophils % 5.0 Basophils % 0.7 Absolute Neutrophils 2.5 Absolute Lymphocytes 2.5 Absolute Monocytes 0.5 Absolute Eosinophils 0.3 Absolute Basophils 0.0 Sodium 140.8 Potassium 4.5 Chloride 112 H Carbon Dioxide 24 Anion Gap 5 BUN 6 L Creatinine 0.63 Est GFR ( Amer) > 60 Est GFR (Non-Af Amer) > 60 Glucose 78 Calcium 8.0 L Total Bilirubin 0.6 AST 45 H ALT 159 H Alkaline Phosphatase 109 Total Protein 5.5 L Albumin 2.7 L Lipase 3735.3 H 09/07/16 02:48 Creatine Kinase 64 Impressions: Abdomen Ultrasound 09/06/16 19:51 IMPRESSION: NO ACUTE FINDINGS WITHIN THE RIGHT UPPER QUADRANT. NO SIGNIFICANT CHANGE FROM PRIOR STUDY. Abdomen/Pelvis CT 09/06/16 22:51 IMPRESSION: NO ACUTE INFLAMMATORY CHANGE IDENTIFIED WITHIN THE ABDOMEN OR PELVIS. STABLE DEGREE OF BILIARY AND PANCREATIC DUCTAL DILATATION STATUS POST CHOLECYSTECTOMY. 3.6 CM RIGHT OVARIAN CYST PRESUMABLY PHYSIOLOGIC. CORRELATE WITH SYMPTOMS/ PELVIC EXAM. Abdomen MRI 09/07/16 00:00 IMPRESSION: Again there is prominence of the common bile duct and the more central intrahepatic biliary radicals unchanged from the recent CT scan. Again there is prominence of the pancreatic duct unchanged from the previous study. No intraluminal filling defect to confirm a common bile duct stone is seen. These changes are presumably related to the patient being post cholecystectomy. Other findings as noted above Assessment & Plan - Diagnosis (1) Pancreatitis Qualifiers: Chronicity: acute Pancreatitis type: unspecified pancreatitis type Acute pancreatitis complication: unspecified Qualified Code(s): K85.90 - Acute pancreatitis without necrosis or infection, unspecified Is this a current diagnosis for this admission?: YesPlan: MRCP showed no retained stones. Lipase and liver enzymes trending downward. Still with some nonspecific epigastric and generalized abdominal pain. Will add bentyl 20 mg qid. (2) Abnormal LFTs Is this a current diagnosis for this admission?: YesPlan: Trending downward (3) Epigastric pain Is this a current diagnosis for this admission?: YesPlan: Improved from yesterday. Has been on many different PPI agents with no improvement. Will add bentyl await GI consult (4) Anxiety Is this a current diagnosis for this admission?: YesPlan: Continue anxiolytics (5) GERD (gastroesophageal reflux disease) Is this a current diagnosis for this admission?: YesPlan: Continue PPI therapy - Time Time Spent with patient: 25-34 minutes Critical Time spent with patient: 15-24 minutes Medications reviewed and adjusted accordingly: Yes Anticipated discharge: Home Within: within 48 hours
[2016-09-08] MEDS: DOCUSATE SODIUM 100 MG CAPSULE PO SCH ×2 (11:59→18:27)
[2016-09-08] MEDS: ONDANSETRON HCL INJ/PF 4 MG/2 ML SDV IV PRN ×2 (15:41→21:13)
[2016-09-08] MEDS: MORPHINE SULFATE 10 MG/ML INJ IV PRN ×2 (15:41→21:13)
[2016-09-08] MEDS: DICYCLOMINE HCL 20 MG TABLET PO SCH ×3 (15:41→21:14)
[2016-09-08] MEDS: NORMAL SALINE 1000 ML 1,000 ML IV PRN (21:10)
[2016-09-09] MEDS: KETOROLAC TROMETHAMINE INJ/PF 30 MG/1 ML SDV IV PRN ×2 (03:14→18:09)
[2016-09-09] MEDS: HEPARIN SOD (PORCINE) 5,000 UNIT/ML 1 ML SYRINGE SUBCUT SCH ×3 (06:25→22:05)
[2016-09-09] MEDS: NORMAL SALINE 1000 ML 1,000 ML IV PRN ×3 (06:26→22:05)
[2016-09-09 07:39] LABS: ALANINE AMINOTRANSFERASE 145 U/L (9-52); ALBUMIN 2.8 g/dL (3.5-5.0); ALKALINE PHOSPHATASE 97 U/L (38-126); ANION GAP 6 (5-19); ASPARTATE AMINO TRANSFERASE 42 U/L (14-36); BILIRUBIN,DIRECT 0.3 mg/dL (0.0-0.4); BILIRUBIN,TOTAL 0.5 mg/dL (0.2-1.3); BLOOD UREA NITROGEN 6 mg/dL (7-20); CALCIUM 8.6 mg/dL (8.4-10.2); CARBON DIOXIDE 25 mmol/L (22-30); CHLORIDE 108 mmol/L (98-107); CREATININE RESULT 0.63 mg/dL (0.52-1.25); GLUCOSE 80 mg/dL (75-110); LIPASE 1616.2 U/L (23-300); POTASSIUM 4.3 mmol/L (3.6-5.0); SODIUM 138.8 mmol/L (137-145); TOTAL PROTEIN 5.7 g/dL (6.3-8.2)
[2016-09-09] MEDS: DOCUSATE SODIUM 100 MG CAPSULE PO SCH ×2 (09:22→18:09)
[2016-09-09] MEDS: DICYCLOMINE HCL 20 MG TABLET PO SCH ×4 (09:25→22:05)
[2016-09-09] MEDS: MORPHINE SULFATE 10 MG/ML INJ IV PRN ×2 (09:29→23:22)
[2016-09-09] MEDS ORDERED: ACETAMINOPHEN 325 MG TABLET PO PRN (14:25)
--- NOTE | 2016-09-09 14:56 | PDOC CONSULTATION ---
Consultation Consult Date: 09/09/16 Attending physician:: NAHUM SENA Consult reason:: Epigastric abdominal pain. Pancreatitis History of Present Illness Admission Date/PCP: 09/07/16 02:24 JESSICA FIELD MD History of Present Illness: patient is admitted by the Hospitalist service has pancreatitis which is improving patient states has epigastric discomfort is associated with nausea and occasional vomiting is distinctly different in nature patient states no melena there is no early satiety patient states may have had EGD in the past denies any blood in her stools there is no weight loss Past Medical History Cardiac Medical History: Denies: Coronary Artery Disease, Myocardial Infarction, Hypertension Pulmonary Medical History: Denies: Asthma, Bronchitis, Chronic Obstructive Pulmonary Disease (COPD), Pneumonia Neurological Medical History: Denies: Seizures GI Medical History: Reports: Other - Gallstone pancreatitis Musculoskeltal Medical History: Reports: Arthritis - Painful Rt wrist/hand (? Carpal tunnel syndrome) Psychiatric Medical History: Reports: None Hematology: Denies: Anemia, Sickle Cell Disease Past Surgical History Past Surgical History: Reports: Cholecystectomy Denies: Amputation, Hysterectomy Social History Lives with: Family Smoking Status: Current Every Day Smoker Cigarettes Packs Per Day: 0.3 Number of Years Smokin Frequency of Alcohol Use: Rare Hx Recreational Drug Use: No Drugs: None Hx Prescription Drug Abuse: No - Advance Directive Resuscitation Status: Full Code Family History Family History: Hypertension Parental Family History Reviewed: Yes Children Family History Reviewed: Unknown Sibling(s) Family History Reviewed.: Unknown Medication/Allergy Home Medications: No Home Medications 09/06/16 Allergies/Adverse Reactions: aspirin [Aspirin] Allergy (Verified 09/06/16 22:00) Review of Systems Constitutional: ABSENT: fever(s), headache(s), night sweats, weakness Eyes: ABSENT: visual disturbances Ears: ABSENT: hearing changes Nose, Mouth, and Throat: ABSENT: mouth pain Cardiovascular: ABSENT: chest pain, orthropnea, palpitations Respiratory: ABSENT: dyspnea, hemoptysis Gastrointestinal: ABSENT: diarrhea, hematemesis, hematochezia Genitourinary: ABSENT: dysuria, hematuria Musculoskeletal: ABSENT: deformity, joint swelling Neurological: ABSENT: focal weakness, frequent falls, syncope, tingling Endocrine: ABSENT: polydipsia, polyphagia, polyuria Hematologic/Lymphatic: ABSENT: lymphadenopathy Physical Exam Vital Signs: Temp Pulse Resp BP Pulse Ox 98.1 F 52 L 20 117/81 100 09/09/16 11:38 09/09/16 11:38 09/09/16 11:38 09/09/16 11:38 09/09/16 11:38 Intake & Output 09/08/16 09/09/16 09/10/16 06:59 06:59 06:59 Intake Total 2900 4820 Balance 2900 4820 Weight 67.8 kg 68.9 kg General appearance: PRESENT: no acute distress, well-nourished Head exam: PRESENT: atraumatic, normocephalic Eye exam: PRESENT: EOMI, PERRLA. ABSENT: nystagmus, periorbital swelling, scleral icterus Mouth exam: PRESENT: moist Throat exam: ABSENT: tonsillar exudate, tonsillogmegaly Neck exam: ABSENT: meningismus, tenderness, thyromegaly Respiratory exam: PRESENT: clear to auscultation reji, symmetrical, unlabored. ABSENT: accessory muscle use Cardiovascular exam: PRESENT: RRR, +S1, +S2 Pulses: PRESENT: normal carotid pulses GI/Abdominal exam: PRESENT: soft. ABSENT: Johnson's sign, rebound, rigid, tenderness Extremities exam: ABSENT: joint swelling Neurological exam: PRESENT: oriented to time, oriented to situation, reflexes normal, CN II-XII grossly intact Skin exam: PRESENT: normal color. ABSENT: mottled, pallor, petechiae, urticaria , vesicles Results Laboratory Results: 09/08/16 05:29 09/09/16 06:36 09/09/16 06:36 Sodium 138.8 Potassium 4.3 Chloride 108 H Carbon Dioxide 25 Anion Gap 6 BUN 6 L Creatinine 0.63 Est GFR ( Amer) > 60 Est GFR (Non-Af Amer) > 60 Glucose 80 Calcium 8.6 Total Bilirubin 0.5 AST 42 H ALT 145 H Alkaline Phosphatase 97 Total Protein 5.7 L Albumin 2.8 L Lipase 1616.2 H 09/07/16 02:48 Creatine Kinase 64 Impressions: Abdomen Ultrasound 09/06/16 19:51 IMPRESSION: NO ACUTE FINDINGS WITHIN THE RIGHT UPPER QUADRANT. NO SIGNIFICANT CHANGE FROM PRIOR STUDY. Abdomen/Pelvis CT 09/06/16 22:51 IMPRESSION: NO ACUTE INFLAMMATORY CHANGE IDENTIFIED WITHIN THE ABDOMEN OR PELVIS. STABLE DEGREE OF BILIARY AND PANCREATIC DUCTAL DILATATION STATUS POST CHOLECYSTECTOMY. 3.6 CM RIGHT OVARIAN CYST PRESUMABLY PHYSIOLOGIC. CORRELATE WITH SYMPTOMS/ PELVIC EXAM. Abdomen MRI 09/07/16 00:00 IMPRESSION: Again there is prominence of the common bile duct and the more central intrahepatic biliary radicals unchanged from the recent CT scan. Again there is prominence of the pancreatic duct unchanged from the previous study. No intraluminal filling defect to confirm a common bile duct stone is seen. These changes are presumably related to the patient being post cholecystectomy. Other findings as noted above Assessment & Plan - Diagnosis (1) Epigastric pain Is this a current diagnosis for this admission?: YesPlan: ? possible peptic ulcer disease will need EGD risks, benefits and alternatives are discussed with the patient in detail further recommendations to follow (2) Pancreatitis Qualifiers: Chronicity: acute Pancreatitis type: unspecified pancreatitis type Acute pancreatitis complication: unspecified Qualified Code(s): K85.90 - Acute pancreatitis without necrosis or infection, unspecified Is this a current diagnosis for this admission?: YesPlan: this is improving patient appears to be able to tolerate a diet will continue to monitor further recommendations to follow - Time Time Spent: 50 to 70 Minutes
--- NOTE | 2016-09-09 15:53 | PDOC PROGRESS REPORT ---
Subjective Progress Note for:: 09/09/16 Subjective:: Patient is seen on morning rounds. She is resting in bed. She she continues to have mild to moderate epigastric pain. She is not having the diffuse abdominal pain she had admission however. She did tolerate clear liquids yesterday with no nausea or vomiting She denies any diarrhea. She states she's not had a bowel movement 2 days. She denies any chest pain, shortness of breath or dyspnea. Rest of review of systems are negative. Her lipase and LFTs of continued to improve. Physical Exam Vital Signs: Temp Pulse Resp BP Pulse Ox 98.1 F 52 L 20 117/81 100 09/09/16 11:38 09/09/16 11:38 09/09/16 11:38 09/09/16 11:38 09/09/16 11:38 Intake & Output 09/08/16 09/09/16 09/10/16 06:59 06:59 06:59 Intake Total 2900 4820 Balance 2900 4820 Weight 67.8 kg 68.9 kg General appearance: PRESENT: no acute distress, well-developed, well-nourished Head exam: PRESENT: atraumatic, normocephalic Eye exam: PRESENT: conjunctiva pink, EOMI, PERRLA. ABSENT: scleral icterus Ear exam: PRESENT: normal external ear exam Mouth exam: PRESENT: moist, tongue midline Neck exam: ABSENT: carotid bruit, JVD, lymphadenopathy, thyromegaly Respiratory exam: PRESENT: clear to auscultation reji. ABSENT: rales, rhonchi, wheezes Cardiovascular exam: PRESENT: RRR. ABSENT: diastolic murmur, rubs, systolic murmur Pulses: PRESENT: normal dorsalis pedis pul GI/Abdominal exam: PRESENT: normal bowel sounds, soft, tenderness - Epigastric region Rectal exam: PRESENT: deferred Extremities exam: PRESENT: full ROM. ABSENT: calf tenderness, clubbing, pedal edema Musculoskeletal exam: PRESENT: ambulatory, full ROM, normal inspection Neurological exam: PRESENT: alert, awake, oriented to person, oriented to place , oriented to time, oriented to situation, CN II-XII grossly intact. ABSENT: motor sensory deficit Psychiatric exam: PRESENT: appropriate affect, normal mood. ABSENT: homicidal ideation, suicidal ideation Skin exam: PRESENT: dry, intact, warm. ABSENT: cyanosis, rash Results Laboratory Results: 09/08/16 05:29 09/09/16 06:36 09/09/16 06:36 Sodium 138.8 Potassium 4.3 Chloride 108 H Carbon Dioxide 25 Anion Gap 6 BUN 6 L Creatinine 0.63 Est GFR ( Amer) > 60 Est GFR (Non-Af Amer) > 60 Glucose 80 Calcium 8.6 Total Bilirubin 0.5 AST 42 H ALT 145 H Alkaline Phosphatase 97 Total Protein 5.7 L Albumin 2.8 L Lipase 1616.2 H 09/07/16 02:48 Creatine Kinase 64 Impressions: Abdomen Ultrasound 09/06/16 19:51 IMPRESSION: NO ACUTE FINDINGS WITHIN THE RIGHT UPPER QUADRANT. NO SIGNIFICANT CHANGE FROM PRIOR STUDY. Abdomen/Pelvis CT 09/06/16 22:51 IMPRESSION: NO ACUTE INFLAMMATORY CHANGE IDENTIFIED WITHIN THE ABDOMEN OR PELVIS. STABLE DEGREE OF BILIARY AND PANCREATIC DUCTAL DILATATION STATUS POST CHOLECYSTECTOMY. 3.6 CM RIGHT OVARIAN CYST PRESUMABLY PHYSIOLOGIC. CORRELATE WITH SYMPTOMS/ PELVIC EXAM. Abdomen MRI 09/07/16 00:00 IMPRESSION: Again there is prominence of the common bile duct and the more central intrahepatic biliary radicals unchanged from the recent CT scan. Again there is prominence of the pancreatic duct unchanged from the previous study. No intraluminal filling defect to confirm a common bile duct stone is seen. These changes are presumably related to the patient being post cholecystectomy. Other findings as noted above Assessment & Plan - Diagnosis (1) Pancreatitis Qualifiers: Chronicity: acute Pancreatitis type: unspecified pancreatitis type Acute pancreatitis complication: unspecified Qualified Code(s): K85.90 - Acute pancreatitis without necrosis or infection, unspecified Is this a current diagnosis for this admission?: YesPlan: MRCP showed no retained stones. Lipase and liver enzymes trending downward. Still with some nonspecific epigastric and generalized abdominal pain. Avoiding Dr. Corey's consult. Patient with continued epigastric pain EGD to rule out peptic ulcer disease. (2) Abnormal LFTs Is this a current diagnosis for this admission?: YesPlan: Trending downward (3) Epigastric pain Is this a current diagnosis for this admission?: YesPlan: Improved from yesterday. Has been on many different PPI agents with no improvement. Will add bentyl await GI consult (4) Anxiety Is this a current diagnosis for this admission?: YesPlan: Continue anxiolytics (5) GERD (gastroesophageal reflux disease) Is this a current diagnosis for this admission?: YesPlan: Continue PPI therapy - Time Time Spent with patient: 25-34 minutes Critical Time spent with patient: 15-24 minutes Medications reviewed and adjusted accordingly: Yes
[2016-09-10] MEDS: KETOROLAC TROMETHAMINE INJ/PF 30 MG/1 ML SDV IV PRN ×2 (05:09→21:43)
[2016-09-10] MEDS: HEPARIN SOD (PORCINE) 5,000 UNIT/ML 1 ML SYRINGE SUBCUT SCH ×3 (05:09→21:43)
[2016-09-10] MEDS: NORMAL SALINE 1000 ML 1,000 ML IV PRN ×2 (05:09→10:08)
[2016-09-10 07:11] LABS: ALANINE AMINOTRANSFERASE 122 U/L (9-52); ALBUMIN 2.7 g/dL (3.5-5.0); ALKALINE PHOSPHATASE 89 U/L (38-126); ANION GAP 5 (5-19); ASPARTATE AMINO TRANSFERASE 34 U/L (14-36); BILIRUBIN,DIRECT 0.3 mg/dL (0.0-0.4); BILIRUBIN,TOTAL 0.5 mg/dL (0.2-1.3); BLOOD UREA NITROGEN 7 mg/dL (7-20); CALCIUM 8.5 mg/dL (8.4-10.2); CARBON DIOXIDE 26 mmol/L (22-30); CHLORIDE 108 mmol/L (98-107); CREATININE RESULT 0.63 mg/dL (0.52-1.25); GLUCOSE 81 mg/dL (75-110); LIPASE 897.3 U/L (23-300); POTASSIUM 3.8 mmol/L (3.6-5.0); TOTAL PROTEIN 5.6 g/dL (6.3-8.2)
[2016-09-10] MEDS: DICYCLOMINE HCL 20 MG TABLET PO SCH ×4 (10:05→21:43)
[2016-09-10] MEDS: DOCUSATE SODIUM 100 MG CAPSULE PO SCH ×2 (10:05→17:57)
[2016-09-10] MEDS ORDERED: ONDANSETRON HCL INJ/PF 4 MG/2 ML SDV ONE (12:37)
[2016-09-10] MEDS ORDERED: DIPHENHYDRAMINE HCL 50 MG/ML VIAL ONE (12:37)
[2016-09-10] MEDS ORDERED: NALOXONE HCL INJ/PF 0.4 MG/1 ML SDV ONE (12:38)
[2016-09-10] MEDS ORDERED: MIDAZOLAM 2 MG/2 ML INJ ONE (12:38)
[2016-09-10] MEDS ORDERED: FLUMAZENIL INJ 0.5 MG/5 ML VIAL IV ONE (12:39)
[2016-09-10] MEDS ORDERED: GLUCAGON,HUMAN RECOMB 1 MG INJ ONE (12:39)
[2016-09-10] MEDS ORDERED: EPINEPHRINE INJ 1 MG/10 ML DISP.SYRIN ONE (12:39)
[2016-09-10] MEDS: MIDAZOLAM 2 MG/2 ML INJ ONE ×2 (13:08→13:13)
[2016-09-10] MEDS: FENTANYL CITRATE INJ/PF 100 MCG/2 ML AMPUL ONE ×2 (13:10→13:11)
--- NOTE | 2016-09-10 13:30 | Operative Report ---
Operative Report DATE OF SURGERY: 09/10/16 Operative Report: The risks benefits and alternatives of the procedure explained to the patient in detail and informed consent is obtained . A GIF Olympus video scope was inserted into the patient's mouth and hypopharynx, the esophagus is identified intubated and insufflated ,the scope was then advanced through the esophagus stomach and duodenum ,retroflexion maneuver is done ,the esophagus stomach and first and second portions of the duodenum examined PREOPERATIVE DIAGNOSIS: Epigastric pain POSTOPERATIVE DIAGNOSIS: Gastritis. Gastric erosions. Duodenitis OPERATION: EGD with biopsy SURGEON: NAHUM SENA ANESTHESIA: Moderate Sedation - 4 mg of Versed, 100 g of fentanyl. Conscious sedation monitored time 30 minutes. TISSUE REMOVED OR ALTERED: Gastric specimens obtained COMPLICATIONS: None. ESTIMATED BLOOD LOSS: none. INTRAOPERATIVE FINDINGS: As noted above. PROCEDURE: Patient tolerated procedure well. No immediate postprocedure complications are noted. Patient sent back to her room in good condition. Resume regular diet Resume previous activity level We'll await on biopsies
--- NOTE | 2016-09-10 15:14 | PDOC PROGRESS REPORT ---
Subjective Progress Note for:: 09/10/16 Subjective:: The patient was seen earlier today on rounds. The patient denies any nausea, vomiting, diarrhea, shortness of breath, dizziness, chest pain, heart palpitations, fevers, or chills. The patient has remained afebrile. Blood pressures have been in a good range. When prompted the patient voices no other concerns at this time. The patient is awaiting EGD with Dr. Corey. Review of systems: The rest of the review of systems is negative. Physical Exam Vital Signs: Temp Pulse Resp BP Pulse Ox 98.7 F 49 L 18 114/68 100 09/10/16 14:32 09/10/16 14:32 09/10/16 14:32 09/10/16 14:32 09/10/16 14:32 Intake & Output 09/08/16 09/09/16 09/10/16 23:59 23:59 23:59 Intake Total 3740 4130 3000 Balance 3740 4130 3000 Weight 67.8 kg 68.9 kg General appearance: PRESENT: no acute distress, cooperative, well-developed, well-nourished Head exam: PRESENT: atraumatic, normocephalic Eye exam: PRESENT: conjunctiva pink, EOMI, PERRLA. ABSENT: scleral icterus Ear exam: PRESENT: normal external ear exam Mouth exam: PRESENT: moist, tongue midline Neck exam: ABSENT: carotid bruit, JVD, lymphadenopathy, thyromegaly Respiratory exam: PRESENT: clear to auscultation reji, symmetrical, unlabored. ABSENT: rales, rhonchi, tachypnea, wheezes Cardiovascular exam: PRESENT: RRR. ABSENT: diastolic murmur, rubs, systolic murmur Pulses: PRESENT: normal dorsalis pedis pul Vascular exam: PRESENT: normal capillary refill GI/Abdominal exam: PRESENT: normal bowel sounds, soft. ABSENT: distended, guarding, mass, organolmegaly, rebound, tenderness Rectal exam: PRESENT: deferred Extremities exam: PRESENT: full ROM. ABSENT: calf tenderness, clubbing, pedal edema Neurological exam: PRESENT: alert, awake, oriented to person, oriented to place , oriented to time, oriented to situation, CN II-XII grossly intact. ABSENT: motor sensory deficit Psychiatric exam: PRESENT: appropriate affect, normal mood. ABSENT: homicidal ideation, suicidal ideation Skin exam: PRESENT: dry, intact, warm. ABSENT: cyanosis, rash Results Laboratory Results: 09/08/16 05:29 09/10/16 06:27 09/10/16 06:27 Sodium 139.0 Potassium 3.8 Chloride 108 H Carbon Dioxide 26 Anion Gap 5 BUN 7 Creatinine 0.63 Est GFR ( Amer) > 60 Est GFR (Non-Af Amer) > 60 Glucose 81 Calcium 8.5 Total Bilirubin 0.5 AST 34 ALT 122 H Alkaline Phosphatase 89 Total Protein 5.6 L Albumin 2.7 L Lipase 897.3 H 09/07/16 02:48 Creatine Kinase 64 Impressions: Abdomen Ultrasound 09/06/16 19:51 IMPRESSION: NO ACUTE FINDINGS WITHIN THE RIGHT UPPER QUADRANT. NO SIGNIFICANT CHANGE FROM PRIOR STUDY. Abdomen/Pelvis CT 09/06/16 22:51 IMPRESSION: NO ACUTE INFLAMMATORY CHANGE IDENTIFIED WITHIN THE ABDOMEN OR PELVIS. STABLE DEGREE OF BILIARY AND PANCREATIC DUCTAL DILATATION STATUS POST CHOLECYSTECTOMY. 3.6 CM RIGHT OVARIAN CYST PRESUMABLY PHYSIOLOGIC. CORRELATE WITH SYMPTOMS/ PELVIC EXAM. Abdomen MRI 09/07/16 00:00 IMPRESSION: Again there is prominence of the common bile duct and the more central intrahepatic biliary radicals unchanged from the recent CT scan. Again there is prominence of the pancreatic duct unchanged from the previous study. No intraluminal filling defect to confirm a common bile duct stone is seen. These changes are presumably related to the patient being post cholecystectomy. Other findings as noted above Assessment & Plan - Diagnosis (1) Pancreatitis Qualifiers: Chronicity: acute Pancreatitis type: unspecified pancreatitis type Acute pancreatitis complication: unspecified Qualified Code(s): K85.90 - Acute pancreatitis without necrosis or infection, unspecified Is this a current diagnosis for this admission?: YesPlan: Overall much improved. The patient's lipase has improved. The patient is currently nothing by mouth for EGD however the patient can advance to a nonfat diet after this. Will repeat lipase in the a.m. and follow will monitor for symptoms (2) Abnormal LFTs Is this a current diagnosis for this admission?: YesPlan: Overall this has improved. (3) Anxiety Is this a current diagnosis for this admission?: Yes (4) Epigastric pain Is this a current diagnosis for this admission?: YesPlan: Early awaiting EGD (5) GERD (gastroesophageal reflux disease) Qualifiers: Esophagitis presence: esophagitis presence not specified Qualified Code(s): K21.9 - Gastro-esophageal reflux disease without esophagitis Is this a current diagnosis for this admission?: YesPlan: Early awaiting EGD will continue PPI therapy. - Time Time Spent with patient: 25-34 minutes Medications reviewed and adjusted accordingly: Yes Anticipated discharge: Home Within: within 24 hours Disposition: The patient is a full code. Pending patient's symptomatology and diagnostic findings will reevaluate in the a.m.
[2016-09-11 00:15] VITALS: BP 120/70
[2016-09-11] MEDS: HEPARIN SOD (PORCINE) 5,000 UNIT/ML 1 ML SYRINGE SUBCUT SCH ×2 (06:00→14:00)
[2016-09-11] MEDS: DOCUSATE SODIUM 100 MG CAPSULE PO SCH ×2 (10:00→18:00)
[2016-09-11] MEDS: DICYCLOMINE HCL 20 MG TABLET PO SCH ×2 (14:00→18:00)
--- NOTE | 2016-09-12 07:00 | PDOC DISCHARGE SUMMARY ---
General - Admit/Disc Date/PCP Admission Date/Primary Care Provider: 09/07/16 02:24 JESSICA FIELD MD [employer], Dr. Pastor Discharge Date: 09/11/16 - Discharge Diagnosis (1) Pancreatitis Is this a current diagnosis for this admission?: Yes (2) Abnormal LFTs Is this a current diagnosis for this admission?: Yes (3) Anxiety Is this a current diagnosis for this admission?: Yes (4) Epigastric pain Is this a current diagnosis for this admission?: Yes (5) GERD (gastroesophageal reflux disease) Is this a current diagnosis for this admission?: Yes - Additional Information Resuscitation Status: Full Code Discharge Diet: Other (Comments) - Low fat Home Medications: No Home Medications 09/06/16 History of Present Illness Patient complains of: Abdominal pain History of Present Illness: SIERRA SOOD is a 36 year old female with past medical history of esophagitis, gastritis, GERD and gallstone pancreatitis status post cholecystectomy 2 years ago. Been her usual state of health until approximately a month ago noting intermittent episodes of dull and boring abdominal pain which became acutely worse over the last 6 hours prompting to seek evaluation emergency room. She is also had intermittent episodes of anxiety, and hives but no loose stools or headache. She is found to have abnormal LFTs, and a lipase of 18,[address] notable for intrahepatic and extrahepatic ductal dilatation. She started on IV fluids and morphine referred to the hospitalist for admission. Patient admits her pain is worse now than prior to her cholecystectomy. And admits To very rare alcohol use without binging otherwise no recent viral prodrome, or new medications other than occasional NSAIDs. Hospital Course Hospital Course: The patient was admitted to a continuous telemetry unit. The patient maintained NPO status and aggressively hydrated. The patient's lipase improved and low fat diet advanced accordingly to symptoms. The patient's symptoms of abdominal pain, nausea, or vomiting were managed with appropriate analgesia and/or antiemetic. The patient is now able to maintain hydration. Lipase completely normalized the patient's symptoms are much improved. Patient has agreed for close follow-up with her primary care provider on Friday for repeat lipase peer Patient was seen and evaluated by gastroenterology. The patient underwent EGD and findings were consistent with gastritis and duodenitis. The patient was started on twice daily PPI therapy with improvement of her symptoms. Is to follow-up with Dr. Corey 09/08/16 09/10/16 05:29 06:27 Lipase 3735.3 H 897.3 H Physical Exam Vital Signs: Temp Pulse Resp BP Pulse Ox 98.5 F 71 17 120/70 99 09/11/16 00:00 09/11/16 00:00 09/11/16 00:00 09/11/16 00:00 09/11/16 00:00 Intake & Output 09/10/16 09/11/16 09/12/16 23:59 23:59 23:59 Intake Total 4800 5 Output Total 2000 Balance 2800 5 General appearance: PRESENT: no acute distress, cooperative, well-developed, well-nourished Head exam: PRESENT: atraumatic, normocephalic Eye exam: PRESENT: conjunctiva pink, EOMI, PERRLA. ABSENT: scleral icterus Ear exam: PRESENT: normal external ear exam Mouth exam: PRESENT: moist, tongue midline Neck exam: ABSENT: carotid bruit, JVD, lymphadenopathy, thyromegaly Respiratory exam: PRESENT: clear to auscultation reji, symmetrical, unlabored. ABSENT: rales, rhonchi, tachypnea, wheezes Cardiovascular exam: PRESENT: RRR. ABSENT: diastolic murmur, rubs, systolic murmur Pulses: PRESENT: normal dorsalis pedis pul Vascular exam: PRESENT: normal capillary refill GI/Abdominal exam: PRESENT: normal bowel sounds, soft. ABSENT: distended, guarding, mass, organolmegaly, rebound, tenderness Rectal exam: PRESENT: deferred Extremities exam: PRESENT: full ROM. ABSENT: calf tenderness, clubbing, pedal edema Neurological exam: PRESENT: alert, awake, oriented to person, oriented to place , oriented to time, oriented to situation, CN II-XII grossly intact. ABSENT: motor sensory deficit Psychiatric exam: PRESENT: appropriate affect, normal mood. ABSENT: homicidal ideation, suicidal ideation Skin exam: PRESENT: dry, intact, warm. ABSENT: cyanosis, rash Results Laboratory Results: Labs- Last Values WBC 5.9 10^3/uL (4.0-10.5) 09/08/16 05:29 RBC 3.49 10^6/uL (3.72-5.28) L 09/08/16 05:29 Hgb 11.1 g/dL (12.0-15.5) L 09/08/16 05:29 Hct 32.7 % (36.0-47.0) L 09/08/16 05:29 MCV 94 fl (80-97) 09/08/16 05:29 MCH 31.8 pg (27.0-33.4) 09/08/16 05:29 MCHC 34.0 g/dL (32.0-36.0) 09/08/16 05:29 RDW 12.1 % (11.5-14.0) 09/08/16 05:29 Plt Count 119 10^3/uL (150-450) L 09/08/16 05:29 Seg Neutrophils % 42.7 % (42-78) 09/08/16 05:29 Lymphocytes % 42.8 % (13-45) 09/08/16 05:29 Monocytes % 8.8 % (3-13) 09/08/16 05:29 Eosinophils % 5.0 % (0-6) 09/08/16 05:29 Basophils % 0.7 % (0-2) 09/08/16 05:29 Absolute Neutrophils 2.5 10^3/uL (1.7-8.2) 09/08/16 05:29 Absolute Lymphocytes 2.5 10^3/uL (0.5-4.7) 09/08/16 05:29 Absolute Monocytes 0.5 10^3/uL (0.1-1.4) 09/08/16 05:29 Absolute Eosinophils 0.3 10^3/uL (0.0-0.6) 09/08/16 05:29 Absolute Basophils 0.0 10^3/uL (0.0-0.2) 09/08/16 05:29 Sodium 139.0 mmol/L (137-145) 09/10/16 06:27 Potassium 3.8 mmol/L (3.6-5.0) 09/10/16 06:27 Chloride 108 mmol/L (98-107) H 09/10/16 06:27 Carbon Dioxide 26 mmol/L (22-30) 09/10/16 06:27 Anion Gap 5 (5-19) 09/10/16 06:27 BUN 7 mg/dL (7-20) 09/10/16 06:27 Creatinine 0.63 mg/dL (0.52-1.25) 09/10/16 06:27 Est GFR ( Amer) > 60 (>60) 09/10/16 06:27 Est GFR (Non-Af Amer) > 60 (>60) 09/10/16 06:27 Glucose 81 mg/dL (75-110) 09/10/16 06:27 Calcium 8.5 mg/dL (8.4-10.2) 09/10/16 06:27 Total Bilirubin 0.5 mg/dL (0.2-1.3) 09/10/16 06:27 Direct Bilirubin 0.3 mg/dL (0.0-0.4) 09/10/16 06:27 Indirect Bilirubin Not Reportable 09/10/16 06:27 Neonat Total Bilirubin Not Reportable 09/10/16 06:27 GGT 260 U/L (8-78) H 09/07/16 02:48 AST 34 U/L (14-36) 09/10/16 06:27 ALT 122 U/L (9-52) H 09/10/16 06:27 Alkaline Phosphatase 89 U/L (38-126) 09/10/16 06:27 Creatine Kinase 64 U/L (30-135) 09/07/16 02:48 Total Protein 5.6 g/dL (6.3-8.2) L 09/10/16 06:27 Albumin 2.7 g/dL (3.5-5.0) L 09/10/16 06:27 Triglycerides 44 mg/dL (<150) 09/07/16 02:48 Cholesterol 139.17 mg/dL (0-200) 09/07/16 02:48 LDL Cholesterol Direct 40 mg/dL (<100) 09/07/16 02:48 VLDL Cholesterol 9.0 mg/dL (10-31) L 09/07/16 02:48 HDL Cholesterol 74 mg/dL (>40) 09/07/16 02:48 Lipase 897.3 U/L (23-300) H 09/10/16 06:27 Urine Color STRAW 09/06/16 21:47 Urine Appearance CLEAR 09/06/16 21:47 Urine pH 8.0 (5.0-9.0) 09/06/16 21:47 Ur Specific [place] 1.002 09/06/16 21:47 Urine Protein NEGATIVE mg/dL (NEGATIVE) 09/06/16 21:47 Urine Glucose (UA) NEGATIVE mg/dL (NEGATIVE) 09/06/16 21:47 Urine Ketones NEGATIVE mg/dL (NEGATIVE) 09/06/16 21:47 Urine Blood NEGATIVE (NEGATIVE) 09/06/16 21:47 Urine Nitrite NEGATIVE (NEGATIVE) 09/06/16 21:47 Urine Bilirubin NEGATIVE (NEGATIVE) 09/06/16 21:47 Urine Urobilinogen NEGATIVE mg/dL (<2.0) 09/06/16 21:47 Ur Leukocyte Esterase NEGATIVE (NEGATIVE) 09/06/16 21:47 Urine WBC (Auto) 0 /HPF 09/06/16 21:47 Squamous Epi Cells Auto <1 /HPF 09/06/16 21:47 Urine Ascorbic Acid NEGATIVE (NEGATIVE) 09/06/16 21:47 Urine HCG, Qual NEGATIVE (NEGATIVE) 09/06/16 21:47 Hepatitis A IgM Ab Negative (Negative) 09/07/16 02:48 Hep Bs Antigen Negative (Negative) 09/07/16 02:48 Hep B Core IgM Ab Negative (Negative) 09/07/16 02:48 Hepatitis C Antibody 0.2 s/co ratio (0.0-0.9) 09/07/16 02:48 Impressions: Abdomen Ultrasound 09/06/16 19:51 IMPRESSION: NO ACUTE FINDINGS WITHIN THE RIGHT UPPER QUADRANT. NO SIGNIFICANT CHANGE FROM PRIOR STUDY. Abdomen/Pelvis CT 09/06/16 22:51 IMPRESSION: NO ACUTE INFLAMMATORY CHANGE IDENTIFIED WITHIN THE ABDOMEN OR PELVIS. STABLE DEGREE OF BILIARY AND PANCREATIC DUCTAL DILATATION STATUS POST CHOLECYSTECTOMY. 3.6 CM RIGHT OVARIAN CYST PRESUMABLY PHYSIOLOGIC. CORRELATE WITH SYMPTOMS/ PELVIC EXAM. Abdomen MRI 09/07/16 00:00 IMPRESSION: Again there is prominence of the common bile duct and the more central intrahepatic biliary radicals unchanged from the recent CT scan. Again there is prominence of the pancreatic duct unchanged from the previous study. No intraluminal filling defect to confirm a common bile duct stone is seen. These changes are presumably related to the patient being post cholecystectomy. Other findings as noted above Qualifiers PATEINT BEING DISCHARGED WITH ANY OF THE FOLLOWING DIAGNOSIS?: No Plan Discharge Plan: Follow-up with primary care provider within 48 hours for hospital follow-up. 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 Corey within 2 weeks for hospital follow-up. Time Spent: Less than 30 Minutes
[2016-09-12 08:00] LABS: HEMATOCRIT 34.4 % (36.0-47.0); HEMOGLOBIN 11.8 g/dL (12.0-15.5); MEAN CORPUSCULAR HEMOGLOBIN 31.8 pg (27.0-33.4); MEAN CORPUSCULAR HGB CONC 34.3 g/dL (32.0-36.0); MEAN CORPUSCULAR VOLUME 93 fl (80-97); RED BLOOD COUNT 3.71 10^6/uL (3.72-5.28); RED CELL DISTRIBUTION WIDTH 11.8 % (11.5-14.0); WHITE BLOOD COUNT 6.4 10^3/uL (4.0-10.5)
[2016-09-14 20:01] LABS: ANION GAP 8 (5-19); BLOOD UREA NITROGEN 8 mg/dL (7-20); CALCIUM 8.8 mg/dL (8.4-10.2); CARBON DIOXIDE 25 mmol/L (22-30); CHLORIDE 106 mmol/L (98-107); CREATININE RESULT 0.63 mg/dL (0.52-1.25); GLUCOSE 98 mg/dL (75-110); LIPASE 1332.3 U/L (23-300); POTASSIUM 3.8 mmol/L (3.6-5.0)
== END 2016-09-11 10:30 | disposition home or self-care (01) | DRG 440 ==
LOC: ER 15:39 → EH 09-07 01:05 → UNDOADMIN 09-07 01:05 → EH 09-07 02:24 → 5 09-07 02:55 → EH 09-07 02:55
PROVIDERS: ADMIT Internal Medicine; ATTEND Internal Medicine
PROC: 0DB68ZX Excision of Stomach, Via Natural or Artificial Opening Endoscopic, Diagnostic (ICD-10-PCS; principal; 2016-09-10 13:30)
DX: K85.90 Acute pancreatitis without necrosis or infection, unspecified (principal); K29.70 Gastritis, unspecified, without bleeding; K29.80 Duodenitis without bleeding; K21.9 Gastro-esophageal reflux disease without esophagitis; F41.9 Anxiety disorder, unspecified; Z90.49 Acquired absence of other specified parts of digestive tract; M19.90 Unspecified osteoarthritis, unspecified site; F17.210 Nicotine dependence, cigarettes, uncomplicated; Z82.49 Family history of ischemic heart disease and other diseases of the circulatory system; Z88.6 Allergy status to analgesic agent; R79.89 Other specified abnormal findings of blood chemistry
CPT/HCPCS: 36415; 43239; 74177; 74181; 76705; 80048; 80053; 80061; 80074; 80076; 81001; 81025; 82550; 82977; 83690; 85025; 85027; 88305; 88342; 96361; 96374; 99285; J0171; J1200; J1610; J1644; J1885; J2250; J2270; J2310; J2405; J3010; J3490; J7030

== ENCOUNTER 2017-02-03 21:33 | Emergency (ER) | payer SELFPAY ==
[2017-02-03] MEDS ORDERED: HYDROMORPHONE HCL INJ/PF 2 MG/ML AMPULE IV ONE (21:45)
[2017-02-03] MEDS ORDERED: DIPH/PERTUSS(ACELL)/TETANUS VAC/PF 0.5 ML SYR (>=10YO) IM ONE (21:45)
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
[2017-02-03] MEDS ORDERED: SILVER SULFADIAZINE 1% CREAM 400 GM TP ONE (22:36)
[2017-02-03 22:57] VITALS: BP 146/90
== END 2017-02-03 23:50 | disposition home or self-care (01) ==
LOC: ER 21:33
DX: T24.212A Burn of second degree of left thigh, initial encounter (principal); T24.211A Burn of second degree of right thigh, initial encounter; X12.XXXA Contact with other hot fluids, initial encounter; Y93.89 Activity, other specified; Y92.009 Unspecified place in unspecified non-institutional (private) residence as the place of occurrence of the external cause; Z88.6 Allergy status to analgesic agent; F17.200 Nicotine dependence, unspecified, uncomplicated
CPT/HCPCS: 99283; 90471; 96374; 90715; J1170; J3490

== ENCOUNTER 2017-02-09 13:54 | Emergency (ER) | payer SELFPAY ==
[2017-02-09 14:20] VITALS: BP 130/91
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
== END 2017-02-09 15:15 | disposition home or self-care (01) ==
LOC: ER 13:54
DX: T24.211D Burn of second degree of right thigh, subsequent encounter (principal); X12.XXXD Contact with other hot fluids, subsequent encounter
CPT/HCPCS: 99283

== ENCOUNTER 2018-01-15 18:05 | Emergency (ER) | payer MEDICAID ==
[2018-01-15 18:17] VITALS: BP 141/83
--- NOTE | 2018-01-15 19:19 | ER Document Report ---
ED General - General Chief Complaint: Chest Pain Stated Complaint: NECK/CHEST PAIN Time Seen by Provider: 01/15/18 18:45 TRAVEL OUTSIDE OF THE [place] IN LAST 30 DAYS: No - HPI Patient complains to provider of: Neck pain chest pain Notes: Patient coming in for neck pain chest pain ongoing for the last 2 days. Patient states neck pain top of the neck in the occipital region going up through the top of her head. Also states that intermittently have some right arm numbness. Patient also states left upper chest wall pain underneath the clavicle patient denies any trauma denies any fevers chills nausea vomiting diarrhea denies taking medication to help with pain control. Patient resting comfortably upon my evaluation denies any past medical history states that she is allergic to aspirin however cannot take anti-inflammatory such as Naprosyn or Motrin. - Related Data Allergies/Adverse Reactions: aspirin [Aspirin] Allergy (Verified 01/15/18 18:05) Past Medical History - Social History Smoking Status: Never Smoker Family History: Hypertension Patient has suicidal ideation: No Patient has homicidal ideation: No - Past Medical History Cardiac Medical History: Denies: Hx Coronary Artery Disease, Hx Heart Attack, Hx Hypertension Pulmonary Medical History: Denies: Hx Asthma, Hx Bronchitis, Hx COPD, Hx Pneumonia Neurological Medical History: Denies: Hx Cerebrovascular Accident, Hx Seizures Renal/ Medical History: Denies: Hx Peritoneal Dialysis GI Medical History: Musculoskeletal Medical History: Reports Hx Arthritis - Painful Rt wrist/hand ( ? Carpal tunnel syndrome) Psychiatric Medical History: Reports: Hx Anxiety Infectious Medical History: Past Surgical History: Reports: Hx Cholecystectomy. Denies: Hx Hysterectomy - Immunizations Immunizations up to date: Yes Hx Diphtheria, Pertussis, Tetanus Vaccination: Yes - 2017 Review of Systems - Review of Systems Constitutional: No symptoms reported EENT: Other - Neck pain Cardiovascular: Chest pain Respiratory: No symptoms reported Gastrointestinal: No symptoms reported Genitourinary: No symptoms reported Female Genitourinary: No symptoms reported Musculoskeletal: No symptoms reported Skin: No symptoms reported Hematologic/Lymphatic: No symptoms reported Neurological/Psychological: No symptoms reported -: Yes All other systems reviewed and negative Physical Exam - Vital signs Vitals: Temp Pulse Resp BP Pulse Ox 97.4 F 86 16 141/83 H 100 01/15/18 18:16 01/15/18 18:16 01/15/18 18:16 01/15/18 18:16 01/15/18 18:16 Interpretation: Normal - General General appearance: Appears well, Alert - HEENT Head: Normocephalic, Atraumatic Eyes: Normal Pupils: PERRL Notes: No midline tenderness palpation of the paraspinal tenderness patient does have tenderness bilateral insertion points of the paraspinal muscles at the inion or the occiput - Respiratory Respiratory status: No respiratory distress Chest status: Tender - Tenderness palpation of the left upper chest wall reproduces patient's pain Breath sounds: Normal Chest palpation: Normal - Cardiovascular Rhythm: Regular Heart sounds: Normal auscultation Murmur: No - Abdominal Inspection: Normal Distension: No distension Bowel sounds: Normal Tenderness: Nontender Organomegaly: No organomegaly - Back Back: Normal, Nontender - Extremities General upper extremity: Normal inspection, Nontender, Normal color, Normal ROM , Normal temperature General lower extremity: Normal inspection, Nontender, Normal color, Normal ROM , Normal temperature, Normal weight bearing. No: Janeth's sign - Neurological Neuro grossly intact: Yes Cognition: Normal Orientation: AAOx4 [place] Coma Scale Eye Opening: Spontaneous [place] Coma Scale Verbal: Oriented [place]e Coma Scale Motor: Obeys Commands [place] Coma Scale Total: 15 Speech: Normal Motor strength normal: LUE, RUE, LLE, RLE Sensory: Normal - Psychological Associated symptoms: Normal affect, Normal mood - Skin Skin Temperature: Warm Skin Moisture: Dry Skin Color: Normal Course - Re-evaluation Re-evalutation: 01/15/18 19:25 The patient has atypical chest pain as the patient's chest pain is not suggestive of pulmonary embolus, cardiac ischemia, aortic dissection, or other serious etiology. Given the extremely low risk of these diagnoses further testing and evaluation for these possibilities does not appear to be indicated at this time. The patient has been instructed to return if the symptoms worsen or change in any way. Right arm numbness is more consistent with more likely with radiculopathy from pinching of nerves C-spine x-rays were performed showing no acute pathology chest x-ray is also negative EKG shows normal sinus rhythm. Patient will be discharged home pain medication regimen recommend follow-up primary care physician if symptoms worsen. - Vital Signs Vital signs: Temp Pulse Resp BP Pulse Ox 97.4 F 86 16 141/83 H 100 01/15/18 18:16 01/15/18 18:16 01/15/18 18:16 01/15/18 18:16 01/15/18 18:16 Discharge - Discharge Clinical Impression: Chest wall pain, Neck pain Disposition: HOME, SELF-CARE Instructions: Anti-Inflammatory Medication ([facility]), Chest Wall Pain ([facility]), Oral Narcotic Medication ([facility]), Radiculopathy ([facility]), Warm Packs ([facility]) Additional Instructions: X-rays do not show any acute pathology. Would recommend follow-up with your primary care physician for further evaluation. Return to ER symptoms worsen take medications as prescribed. Prescriptions: Ibuprofen [Motrin 600 mg Tablet] 600 mg PO Q8HP PRN #21 tablet PRN Reason: Tramadol HCl [Ultram 50 mg Tablet] 50 mg PO ASDIR PRN #20 tablet PRN Reason: Forms: Return to Work
--- NOTE | 2018-01-15 19:29 | RADIOLOGY REPORT (SQ) ---
EXAM DESCRIPTION: CHEST 2 VIEWS COMPLETED DATE/TIME: 01/15/2018 7:10 pm REASON FOR STUDY: pain numbness COMPARISON: 07/31/2013 TECHNIQUE: Frontal and lateral radiographic views of the chest acquired. NUMBER OF VIEWS: Two view. LIMITATIONS: None. FINDINGS: LUNGS AND PLEURA: No pneumothorax. No consolidation or pleural effusion. MEDIASTINUM AND HILAR STRUCTURES: Stable. HEART AND VASCULAR STRUCTURES: Stable. BONES: No acute findings. HARDWARE: None in the chest. OTHER: No other significant finding. IMPRESSION: NO ACUTE FINDINGS. TECHNICAL DOCUMENTATION: JOB ID: [id number] [place]-72 2010 [employer]- All Rights Reserved Reading location - IP/workstation name: [email or web address]
--- NOTE | 2018-01-15 19:31 | RADIOLOGY REPORT (SQ) ---
EXAM DESCRIPTION: CERV SP 4 OR 5 VIEWS COMPLETED DATE/TIME: 01/15/2018 7:10 pm REASON FOR STUDY: pain numbness COMPARISON: None. NUMBER OF VIEWS: Five views. TECHNIQUE: AP, lateral, obliques and odontoid radiographic images acquired of the cervical spine. LIMITATIONS: None. FINDINGS: MINERALIZATION: Normal. ALIGNMENT: Anatomic. VERTEBRAE: Vertebral bodies of normal height. DISCS: No significant osteophytes or sclerosis. Disc height maintained. FORAMINA: No osteophytes or foraminal narrowing. LATERAL AND POSTERIOR ELEMENTS: Facets, lateral masses and spinous processes without significant find ings. HARDWARE: None in the spine. SOFT TISSUES: No masses or calcifications. Lung apices clear. OTHER: No other significant finding. IMPRESSION: NO SIGNIFICANT RADIOGRAPHIC FINDING IN THE CERVICAL SPINE. TECHNICAL DOCUMENTATION: JOB ID: [id number] [place]-72 2010 [employer]- All Rights Reserved Reading location - IP/workstation name: [email or web address]
--- NOTE | 2018-01-15 20:04 | EKG REPORT ---
SEVERITY:- NORMAL ECG - SINUS RHYTHM : Confirmed by: Sigrid Gomez MD 15-Jan-2018 20:04:11
== END 2018-01-15 19:21 | disposition home or self-care (01) ==
LOC: ER 18:05
DX: R07.89 Other chest pain (principal); M54.2 Cervicalgia; R20.0 Anesthesia of skin
CPT/HCPCS: 71046; 72050; 93005; 93010; 99285

== ENCOUNTER 2018-02-21 23:31 | Emergency (ER) | payer SELFPAY ==
[2018-02-22] MEDS ORDERED: ONDANSETRON HCL INJ/PF 4 MG/2 ML SDV IV ONE (01:36)
[2018-02-22] MEDS ORDERED: NORMAL SALINE 1000 ML 1,000 ML IV ONE (01:36)
[2018-02-22] MEDS ORDERED: MORPHINE SULFATE 10 MG/ML INJ IV ONE (01:36)
--- NOTE | 2018-02-22 01:44 | ER Document Report ---
ED General - General Chief Complaint: Abdominal Pain Stated Complaint: STOMACH PAIN Time Seen by Provider: 02/22/18 01:25 Notes: Patient is a 37-year-old female presents with complaint of epigastric pain and nausea. Pain started in the middle day today. No fevers. No diarrhea. No black tarry stools. Patient says pain feels exactly like pancreatitis when she had it last year. She was admitted at that time and worked up for potential cause pancreatitis. It is unclear exactly what is causing or pink otitis that time. She denies any new medications. She denies a history of high cholesterol. Gallbladder is already been removed. She denies any alcohol use. She said she tried to eat some pizza earlier and it made the pain much worse and therefore she stopped. TRAVEL OUTSIDE OF THE [place] IN LAST 30 DAYS: No - Related Data Allergies/Adverse Reactions: aspirin [Aspirin] Allergy (Verified 01/15/18 18:05) Past Medical History - Social History Smoking Status: Never Smoker Frequency of alcohol use: Rare Drug Abuse: None Family History: Hypertension - Past Medical History Cardiac Medical History: Denies: Hx Coronary Artery Disease, Hx Heart Attack, Hx Hypertension Pulmonary Medical History: Denies: Hx Asthma, Hx Bronchitis, Hx COPD, Hx Pneumonia Neurological Medical History: Denies: Hx Cerebrovascular Accident, Hx Seizures Renal/ Medical History: Denies: Hx Peritoneal Dialysis GI Medical History: Musculoskeletal Medical History: Reports Hx Arthritis - Painful Rt wrist/hand ( ? Carpal tunnel syndrome) Psychiatric Medical History: Reports: Hx Anxiety Infectious Medical History: Past Surgical History: Reports: Hx Cholecystectomy. Denies: Hx Hysterectomy - Immunizations Immunizations up to date: Yes Hx Diphtheria, Pertussis, Tetanus Vaccination: Yes - 2017 Review of Systems - Review of Systems Notes: My Normal Review Basic REVIEW OF SYSTEMS: CONSTITUTIONAL : Denies fever, chills, or sweats. Denies recent illness. EENT: Denies eye, ear, throat, or mouth pain or symptoms. Denies nasal or sinus congestion. CARDIOVASCULAR: Denies chest pain. RESPIRATORY: Denies cough, cold, or chest congestion. Denies shortness of breath, difficulty breathing, or wheezing. GASTROINTESTINAL: epigastric abdominal pain. Nausea. No vomiting. GENITOURINARY: Denies difficulty urinating, painful urination, burning, frequency, or blood in urine. MUSCULOSKELETAL: Pain radiates to middle of back. SKIN: Denies rash or skin lesions. NEUROLOGICAL: Denies altered mental status or loss of consciousness. Denies headache. Denies weakness or paralysis or loss of use of either side. Denies problems with gait or speech. Denies sensory or motor loss. ALL OTHER SYSTEMS REVIEWED AND NEGATIVE. Physical Exam - Vital signs Vitals: Temp Pulse Resp BP Pulse Ox 98.6 F 71 14 118/74 100 02/22/18 00:21 02/22/18 00:21 02/22/18 00:21 02/22/18 00:21 02/22/18 00:21 - Notes Notes: General Appearance: Well nourished, alert, cooperative, no acute distress, moderate obvious discomfort. Vitals: reviewed, See vital signs table. Head: no swelling or tenderness to the head Eyes: PERRL, EOMI, Conjuctiva clear Mouth: No decreasd moisture Lungs: No wheezing, No rales, No rhonci, No accessory muscle use, good air exchange bilaterally. Heart: Normal rate, Regular rythm, No murmur, no rub Abdomen: Normal BS, soft, No rigidity, or pain to palpation over epigastric region. Remainder of abdomen is nontender. , No guarding, no rebound, no abdominal masses, no organomegaly Extremities: strength 5/5 in all extremities, good pulses in all extremities, no swelling or tenderness in the extremities, no edema. Skin: warm, dry, appropriate color, no rash Neuro: speech clear, oriented x 3, normal affect, responds appropriately to questions. Course - Re-evaluation Re-evalutation: 02/22/18 03:02 On reevaluation patient's pain and nausea completely resolved and she looks well. Her lipase is actually normal. Surprisingly her test is positive. This is a big surprise the patient as well. She says she is currently having vaginal bleeding. Therefore we will send a quantitative hCG to correlate as to whether not think this is just a false positive test or if she actually is . 02/22/18 04:15 Continues to look well on reevaluation. She G level 17. I discussed this at length with her. I informed her that this could be international representative of a very very early , a that did not progress and therefore she is having a miscarriage during her menstrual. At this time, or just a false- positive. She is to have her hCG level rechecked in 4 days. Her lipase is currently negative. I informed her that is unlikely since she has a normal lipase however is still possibility she could have very early symptoms of pancreatitis and she is just not yet having elevated lipase. Informed her this could also be be that she does not have pink otitis at all and that this is a gastritis or nonbleeding ulcer that is causing her pain. I therefore placed on Carafate and Pepcid and have her eat a very bland diet. I informed to return to ER immediately if she has worsening pain, vomiting, fevers, or feels unwell. Patient agrees with plan and will be discharged home. Dictation of this chart was performed using voice recognition software; therefore, there may be some unintended grammatical errors. - Vital Signs Vital signs: Temp Pulse Resp BP Pulse Ox 98.6 F 71 14 118/74 100 02/22/18 00:21 02/22/18 00:21 02/22/18 00:21 02/22/18 00:21 02/22/18 00:21 - Laboratory Result Diagrams: 02/22/18 02:00 02/22/18 02:00 Laboratory results interpreted by me: 02/22/18 02/22/18 02/22/18 01:42 02:00 02:00 WBC 11.7 H Hgb 11.7 L Hct 35.0 L Glucose 131 H AST 46 H Serum HCG, Qual Beta HCG, Quant Urine Protein 30 H Urine Blood LARGE H Urine Urobilinogen 2.0 H Ur Leukocyte Esterase SMALL H 02/22/18 02/22/18 02:00 02:00 WBC Hgb Hct Glucose AST Serum HCG, Qual POSITIVE H Beta HCG, Quant 17.71 H Urine Protein Urine Blood Urine Urobilinogen Ur Leukocyte Esterase Discharge - Discharge Clinical Impression: Epigastric pain Condition: Good Disposition: HOME, SELF-CARE Additional Instructions: Your hCG level today is 17. This is your hormone level. This could be international representative of a very early that did not progress and therefore your current menstrual period will act as a miscarriage. We need to make sure that this is not a that is progressing therefore you need to have your hCG level rechecked in 4 days. You can return to the ER or just follow-up with your doctor to have this rechecked. At this time your enzymes looking at your pancreas are normal. Over the next several days please take Pepcid every day as well as Carafate that we have prescribed. Please eat a bland diet for the next 4-5 days. Avoid all spicy foods, or fatty foods, and all fried foods. Please return to the ER if you have recurrent pain, vomiting, fevers, or feel that you are worsening in any way. Prescriptions: Famotidine [Pepcid 40 mg Tablet] 40 mg PO DAILY #14 tablet Sucralfate [Carafate Susp 1 Gm/10 Ml Udcup] 1 gm PO ACHS 7 Days udc Forms: Return to Work
[2018-02-22 02:04] LABS: AMORPHOUS SEDIMENT,URINE TRACE /HPF; APPEARANCE,URINE CLOUDY; BILIRUBIN,URINE NEGATIVE (NEGATIVE); COLOR,URINE YELLOW; GLUCOSE, URINE NEGATIVE (NEGATIVE); KETONES,URINE NEGATIVE (NEGATIVE); LEUKOCYTE ESTERASE,URINE SMALL (NEGATIVE); NITRITE,URINE NEGATIVE (NEGATIVE); PROTEIN,URINE 30 mg/dL (NEGATIVE); URINE SPECIFIC GRAVITY 1.024
[2018-02-22 02:14] LABS: ABSOLUTE BASOPHILS # (AUTO) 0.1 10^3/uL (0.0-0.2); ABSOLUTE EOSINOPHILS # (AUTO) 0.4 10^3/uL (0.0-0.6); ABSOLUTE LYMPHOCYTES (AUTO) 2.6 10^3/uL (0.5-4.7); ABSOLUTE MONOCYTES (AUTO) 0.8 10^3/uL (0.1-1.4); ABSOLUTE NEUT (AUTO) 7.9 10^3/uL (1.7-8.2); BASOPHILS % (AUTO) 0.5 % (0-2); HEMOGLOBIN 11.7 g/dL (12.0-15.5); MEAN CORPUSCULAR HEMOGLOBIN 29.8 pg (27.0-33.4); MEAN CORPUSCULAR HGB CONC 33.4 g/dL (32.0-36.0); MEAN CORPUSCULAR VOLUME 89 fl (80-97); MONOCYTES % (AUTO) 6.7 % (3-13); PLATELET COUNT 206 10^3/uL (150-450); RED BLOOD COUNT 3.91 10^6/uL (3.72-5.28); RED CELL DISTRIBUTION WIDTH 12.3 % (11.5-14.0); SEGMENTED NEUTROPHILS % (AUTO) 67.8 % (42-78); TOTAL CELLS COUNTED % (AUTO) 100 %; WHITE BLOOD COUNT 11.7 10^3/uL (4.0-10.5)
[2018-02-22 02:39] LABS: ALANINE AMINOTRANSFERASE 23 U/L (9-52); ALBUMIN 3.7 g/dL (3.5-5.0); ALKALINE PHOSPHATASE 86 U/L (38-126); ANION GAP 8 (5-19); ASPARTATE AMINO TRANSFERASE 46 U/L (14-36); BILIRUBIN,DIRECT 0.2 mg/dL (0.0-0.4); BILIRUBIN,TOTAL 0.3 mg/dL (0.2-1.3); BLOOD UREA NITROGEN 7 mg/dL (7-20); CALCIUM 8.9 mg/dL (8.4-10.2); CARBON DIOXIDE 28 mmol/L (22-30); CHLORIDE 107 mmol/L (98-107); GLUCOSE 131 mg/dL (75-110); LIPASE 198.5 U/L (23-300); POTASSIUM 3.7 mmol/L (3.6-5.0); SODIUM 143.2 mmol/L (137-145); TOTAL PROTEIN 7.4 g/dL (6.3-8.2)
[2018-02-22 04:33] VITALS: BP 121/75
== END 2018-02-22 04:35 | disposition home or self-care (01) ==
LOC: ER 23:31
DX: R10.13 Epigastric pain (principal); R11.0 Nausea; Z32.01 Encounter for pregnancy test, result positive; Z87.19 Personal history of other diseases of the digestive system; Z90.49 Acquired absence of other specified parts of digestive tract; Z88.6 Allergy status to analgesic agent
CPT/HCPCS: 99284; 96361; 96374; 96375; 86900; 86901; 36415; 84702; 83690; 84703; 85025; 80053; 81001; J2270; J2405; J7030

== ENCOUNTER 2018-04-13 12:04 | Emergency (ER) | payer SELFPAY ==
[2018-04-13 12:42] VITALS: BP 133/78
--- NOTE | 2018-04-13 13:15 | ER Document Report ---
ED General - General Chief Complaint: Abdominal Pain Stated Complaint: ABDOMINAL PAIN Time Seen by Provider: 04/13/18 13:14 Mode of Arrival: Ambulatory Information source: Patient Notes: 37-year-old female at approximately 6 weeks gestation presents with complaint of abdominal pain that started to arrival. Pain is described as sharp , intermittent. Patient has associated nausea without vomiting or diarrhea. She denies dysuria, hematuria, vaginal discharge. Patient was seen here in January when she was found to be . She denies any vaginal bleeding. Patient has not yet been seen by OB. She reports recent STD testing which was negative. TRAVEL OUTSIDE OF THE [place] IN LAST 30 DAYS: No - HPI Onset: Other Onset/Duration: Intermittent Quality of pain: Sharp Severity: Moderate Associated symptoms: Nausea. denies: Chest pain, Diarrhea, Fever, Headache, Vomiting Exacerbated by: Denies Relieved by: Denies Similar symptoms previously: Yes Recently seen / treated by doctor: No - Related Data Allergies/Adverse Reactions: aspirin [Aspirin] Allergy (Verified 04/13/18 12:05) Past Medical History - General Information source: Patient, [facility] Records - Social History Smoking Status: Former Smoker Frequency of alcohol use: None Drug Abuse: None Lives with: Family Family History: Hypertension Patient has suicidal ideation: No Patient has homicidal ideation: No - Past Medical History Cardiac Medical History: Denies: Hx Coronary Artery Disease, Hx Heart Attack, Hx Hypertension Pulmonary Medical History: Denies: Hx Asthma, Hx Bronchitis, Hx COPD, Hx Pneumonia Neurological Medical History: Denies: Hx Cerebrovascular Accident, Hx Seizures Renal/ Medical History: Denies: Hx Peritoneal Dialysis GI Medical History: Musculoskeletal Medical History: Reports Hx Arthritis - Painful Rt wrist/hand ( ? Carpal tunnel syndrome) Psychiatric Medical History: Reports: Hx Anxiety Infectious Medical History: Past Surgical History: Reports: Hx Cholecystectomy. Denies: Hx Hysterectomy - Immunizations Immunizations up to date: Yes Hx Diphtheria, Pertussis, Tetanus Vaccination: Yes - 2016 Review of Systems - Review of Systems Notes: REVIEW OF SYSTEMS: CONSTITUTIONAL : Denies fever, chills, or sweats. Denies recent illness. Denies weight loss, recent hospitalizations. EENT: Denies visual changes, eye pain. Denies sore throat, oral lesions, difficulty swallowing. CARDIOVASCULAR: Denies chest pain. Denies palpitations. Denies lower extremity edema. RESPIRATORY: Denies cough. Denies shortness of breath, wheezing. GASTROINTESTINAL: Denies abdominal distention. Denies nausea, or diarrhea. Denies blood in vomitus, stools, or per rectum. Denies black, tarry stools. Denies constipation. GENITOURINARY: Denies difficulty urinating, painful urination, frequency, blood in urine, or vaginal discharge. MUSCULOSKELETAL: Denies back or neck pain or stiffness. Denies joint pain or swelling. SKIN: Denies rash, lesions or sores. HEMATOLOGIC : Denies easy bruising or bleeding. LYMPHATIC: Denies swollen glands. NEUROLOGICAL: Denies confusion or altered mental status. Denies loss of consciousness. Denies dizziness or lightheadedness. Denies headache. Denies weakness or paralysis. Denies problems difficulty with ambulation, slurred speech. Denies sensory loss, numbness, or tingling. Denies seizures. PSYCHIATRIC: Denies anxiety or stress. Denies depression, suicidal ideation, or homicidal ideation. Denies visual or auditory hallucinations. Physical Exam - Vital signs Vitals: Temp Pulse Resp BP Pulse Ox 98.6 F 63 14 133/78 H 100 04/13/18 12:40 04/13/18 12:40 04/13/18 12:40 04/13/18 12:40 04/13/18 12:40 - Notes Notes: PHYSICAL EXAMINATION: GENERAL: Well-appearing, well-nourished and in no acute distress. HEAD: Atraumatic, normocephalic. EYES: Pupils equal round and reactive to light, extraocular movements intact, conjunctiva are normal. ENT: Nares patent, oropharynx clear without exudates. Moist mucous membranes. NECK: Normal range of motion, supple without lymphadenopathy LUNGS: Breath sounds clear to auscultation bilaterally and equal. No wheezes rales or rhonchi. HEART: Regular rate and rhythm without murmurs ABDOMEN: Soft, nontender, nondistended abdomen. No guarding, no rebound. No masses appreciated. Female : deferred Musculoskeletal: Normal range of motion, no pitting or edema. No cyanosis. NEUROLOGICAL: Cranial nerves grossly intact. Normal speech, normal gait. Normal sensory, motor exams PSYCH: Normal mood, normal affect. SKIN: Warm, Dry, normal turgor, no rashes or lesions noted. Course - Re-evaluation Re-evalutation: 04/13/18 20:05 Laboratory 04/13/18 04/13/18 04/13/18 13:10 14:25 14:25 Beta HCG, Quant < 2.39 Total Beta HCG NEGATIVE Urine Color YELLOW Urine Appearance CLEAR Urine pH 8.0 Ur Specific [place] 1.019 Urine Protein NEGATIVE Urine Glucose (UA) NEGATIVE Urine Ketones NEGATIVE Urine Blood NEGATIVE Urine Nitrite NEGATIVE Urine Bilirubin NEGATIVE Urine Urobilinogen NEGATIVE Ur Leukocyte Esterase NEGATIVE Urine WBC (Auto) 0 Urine RBC (Auto) 1 Squamous Epi Cells Auto 4 Urine Mucus (Auto) RARE Urine Ascorbic Acid NEGATIVE Blood Type AB POSITIVE Rhogam Indicated RHOGAM NOT INDICATED Transvaginal US 04/13/18 13:15 IMPRESSION: Wrist felt represent small uterine fibroid is identified. No other significant pelvic abnormalities were identified. Other findings as noted above Temp Pulse Resp BP Pulse Ox 98.6 F 63 14 133/78 H 100 04/13/18 12:40 04/13/18 12:40 04/13/18 12:40 04/13/18 12:40 04/13/18 12:40 Transvaginal US 04/13/18 13:15 IMPRESSION: Wrist felt represent small uterine fibroid is identified. No other significant pelvic abnormalities were identified. Other findings as noted above 37-year-old female presents with abdominal pain. States she had a positive test when seen in January 2018 here in the emergency department. Denies any dysuria, hematuria, vaginal discharge. Vital signs reviewed and within normal limits upon arrival. Patient does not appear toxic or dehydrated. She is in no acute distress. Previous medical records and nursing notes reviewed. Patient did have a positive test in the beta quant of 17 in January. Today hCG is negative. Transvaginal ultrasound performed showed a fibroid, no intrauterine , no evidence of retained products. Urinalysis not consistent with urinary tract infection. Patient declining pelvic exam. Advised to follow-up with [facility]. Suspect false positive hCG in January or missed which is unlikely with the patient's report of no vaginal bleeding. Possibly the cramping the patient is experiencing is the onset of her menses. Findings discussed with the patient. She does express understanding. Patient was evaluated and treated as appropriate for the patient 's presenting symptoms and complaint, with consideration of any critical or life threatening conditions that may be associated with their obtained history and exam as noted above. All results were discussed with patient . Patient provided the opportunity to ask questions, and express concerns. Patient was educated on treatments based on their presumed diagnosis as noted above. At this time we will discharge the patient with return precautions and follow-up recommendations. Verbal discharge instructions given a the bedside. Medication warnings reviewed. Patient is in agreement with this plan and has verbalized understanding of return precautions. After careful consideration I feel that that patient can be safely discharged from the emergency department, they were advised to followup with a primary care physician in 2-3 days. Dictation on this chart was performed using voice recognition software and may result in unintended grammatical, spelling, syntax or errors. - Vital Signs Vital signs: Temp Pulse Resp BP Pulse Ox 98.6 F 63 14 133/78 H 100 04/13/18 12:40 04/13/18 12:40 04/13/18 12:40 04/13/18 12:40 04/13/18 12:40 - Diagnostic Test Radiology reviewed: Image reviewed, Reports reviewed Discharge - Discharge Clinical Impression: Abdominal cramping, Negative test Uterine fibroid Qualifiers: Uterine leiomyoma location: unspecified location Qualified Code(s): D25.9 - Leiomyoma of uterus, unspecified Condition: Good Disposition: HOME, SELF-CARE Instructions: Abdominal Pain ([facility]), Nausea or Vomiting, Nonspecific ([facility]), Observation for Appendicitis ([facility]) Additional Instructions: Your test today was negative. Your ultrasound did not show any evidence of but did show a uterine fibroid. A fibroid is a noncancerous growth in the uterus that can develop during childbearing years. Symptoms include heavy menstrual bleeding, prolonged periods, pelvic pain. Your urinalysis did not show evidence of infection. Please follow-up with OB/ [facility] in the next 2-4 days. Follow up with your [id number] hours for further care or return to the ED IMMEDIATELY if symptoms worsen or you have any concerns. If you cannot afford to follow up with your primary care physician a list of low cost clinics have been provided at the end of your discharge papers as well. Most prescribed medications have multiple side effects. The safest thing to do is when filling your prescription speak to your pharmacist regarding possible interactions with your normal home medications and over the counter medications such as Ibuprofen, Tylenol, Benadryl. If you experience any symptoms that cause you discomfort or concern you should discontinue the medication immediately and return to the emergency room or call your primary care physician. Prescriptions: Naproxen [Naprosyn] 500 mg PO BID PRN #20 tablet PRN Reason: Abdominal Cramping Ondansetron [Zofran Odt 4 mg Tablet] 1 tab PO Q4H PRN #15 tab.rapdis PRN Reason: For Nausea/Vomiting Forms: Elevated Blood Pressure Referrals: JOSIAS PLATA MD [ACTIVE STAFF] - Follow up as needed KEMAR PEÑALOZA MD [ACTIVE STAFF] - Follow up in 3-5 days
[2018-04-13 15:22] LABS: APPEARANCE,URINE CLEAR; BILIRUBIN,URINE NEGATIVE (NEGATIVE); COLOR,URINE YELLOW; GLUCOSE, URINE NEGATIVE (NEGATIVE); KETONES,URINE NEGATIVE (NEGATIVE); LEUKOCYTE ESTERASE,URINE NEGATIVE (NEGATIVE); NITRITE,URINE NEGATIVE (NEGATIVE); PROTEIN,URINE NEGATIVE (NEGATIVE); URINE SPECIFIC GRAVITY 1.019; UROBILINOGEN,URINE NEGATIVE mg/dL (<2.0)
[2018-04-13] MEDS ORDERED: IBUPROFEN 600 MG TABLET PO ONE (17:11)
[2018-04-13] MEDS ORDERED: ONDANSETRON 4 MG TAB.RAPDIS PO ONE (17:11)
--- NOTE | 2018-04-13 17:11 | RADIOLOGY REPORT (SQ) ---
EXAM DESCRIPTION: U/S NON-OB PELVIS TV W/O DOP COMPLETED DATE/TIME: 04/13/2018 4:34 pm REASON FOR STUDY: Pelvic pain COMPARISON: None. TECHNIQUE: Dynamic and static grayscale images acquired of the pelvis via transvaginal approach and recorded on PACS. Additional selected color Doppler and spectral images recorded. LIMITATIONS: None. FINDINGS: UTERUS: What is felt represent a small uterine fibroid is identified measuring 2.8 x 2.9 x 2.1 cm in diameters. ENDOMETRIAL STRIPE: No focal or generalized thickening. No masses. CERVIX: No nabothian cysts. RIGHT OVARY AND DOPPLER: Normal size. No worrisome masses. Normal arterial vascular flow without evid ence for torsion. LEFT OVARY AND DOPPLER: Normal size. No worrisome masses. Normal arterial vascular flow without evide nce for torsion. FREE FLUID: None noted. OTHER: No other significant finding. MEASUREMENTS: UTERUS: 9.3 x 5.1 cm ENDOMETRIAL STRIPE: 10 mm RIGHT OVARY: 2.7 x 2.0 x 1.4 cm LEFT OVARY: 3.1 x 2.4 x 2.0 some IMPRESSION: Wrist felt represent small uterine fibroid is identified. No other significant pelvic a bnormalities were identified. Other findings as noted above TECHNICAL DOCUMENTATION: JOB ID: [id number] [employer]- All Rights Reserved Rev-09/12 Reading location - IP/workstation name: [email or web address]
== END 2018-04-13 17:10 | disposition home or self-care (01) ==
LOC: ER 12:04
DX: D25.9 Leiomyoma of uterus, unspecified (principal); R10.9 Unspecified abdominal pain; R11.0 Nausea; Z32.02 Encounter for pregnancy test, result negative; Z88.6 Allergy status to analgesic agent; Z87.891 Personal history of nicotine dependence; Z90.49 Acquired absence of other specified parts of digestive tract
CPT/HCPCS: 99284; 86900; 86901; 36415; 84702; 81001; 76830; S0119

== ENCOUNTER 2018-11-05 01:42 | Emergency (ER) | payer SELFPAY ==
[2018-11-05] MEDS ORDERED: EPINEPHRINE INJ/PF 1 MG/1 ML AMPULE ONE (02:20)
[2018-11-05] MEDS ORDERED: METHYLPREDNISOLONE INJ 125 MG/2 ML SDV ONE (02:20)
[2018-11-05] MEDS ORDERED: DIPHENHYDRAMINE HCL 50 MG/ML VIAL ONE (02:20)
[2018-11-05] MEDS ORDERED: FAMOTIDINE INJ/PF 20 MG/2 ML SDV IV ONE ×2 (02:21→02:22)
[2018-11-05] MEDS ORDERED: EPINEPHRINE INJ/PF 1 MG/1 ML AMPULE IM ONE (02:22)
[2018-11-05] MEDS ORDERED: METHYLPREDNISOLONE INJ 125 MG/2 ML SDV IV ONE (02:22)
[2018-11-05] MEDS ORDERED: DIPHENHYDRAMINE HCL 50 MG/ML VIAL IV ONE (02:22)
--- NOTE | 2018-11-05 02:29 | ER Document Report ---
ED General - General Chief Complaint: Abdominal Pain Stated Complaint: STOMACH PAIN Time Seen by Provider: 11/05/18 02:12 Notes: Patient is a 38-year-old female that comes to the emergency department for chief complaint of pain in her abdomen with a cramping sensation, nausea, and breaking out into a rash around the same time the stomach cramping started this evening. Rash is everywhere, very itchy. Patient denies difficulty swallowing or breathing. Patient denies any obvious allergic contacts, denies history of allergic reactions. She states she is on no daily medications, she denies , only reported medical history is cholecystectomy. TRAVEL OUTSIDE OF THE [place] IN LAST 30 DAYS: No - Related Data Allergies/Adverse Reactions: aspirin [Aspirin] Allergy (Verified 04/13/18 12:05) mushroom Allergy (Verified 11/05/18 02:34) Past Medical History - General Information source: Patient - Social History Smoking Status: Never Smoker Frequency of alcohol use: None Drug Abuse: None Lives with: Family Family History: Hypertension - Past Medical History Cardiac Medical History: Denies: Hx Coronary Artery Disease, Hx Heart Attack, Hx Hypertension Pulmonary Medical History: Denies: Hx Asthma, Hx Bronchitis, Hx COPD, Hx Pneumonia Neurological Medical History: Denies: Hx Cerebrovascular Accident, Hx Seizures Renal/ Medical History: Denies: Hx Peritoneal Dialysis GI Medical History: Musculoskeletal Medical History: Reports Hx Arthritis - Painful Rt wrist/hand (? Carpal tunnel syndrome) Psychiatric Medical History: Reports: Hx Anxiety Infectious Medical History: Past Surgical History: Reports: Hx Cholecystectomy. Denies: Hx Hysterectomy - Immunizations Immunizations up to date: Yes Hx Diphtheria, Pertussis, Tetanus Vaccination: Yes - 2017 Review of Systems - Review of Systems Constitutional: No symptoms reported EENT: No symptoms reported Cardiovascular: No symptoms reported Respiratory: No symptoms reported Gastrointestinal: See HPI Genitourinary: No symptoms reported Female Genitourinary: No symptoms reported Musculoskeletal: No symptoms reported Skin: See HPI Hematologic/Lymphatic: No symptoms reported Neurological/Psychological: No symptoms reported Physical Exam - Vital signs Vitals: Temp Pulse Resp BP Pulse Ox 97.5 F 100 21 H 130/98 H 100 11/05/18 01:43 11/05/18 01:43 11/05/18 01:43 11/05/18 01:43 11/05/18 01:43 - Notes Notes: GENERAL: Anxious, restless HEAD: Normocephalic, atraumatic. EYES: Pupils equal, round, and reactive to light. Extraocular movements intact. No swelling to the face or eyelids. ENT: Oral mucosa moist, tongue midline. Oropharynx unremarkable. Airway patent. NECK: Full range of motion. Supple. Trachea midline. LUNGS: Clear to auscultation bilaterally, no wheezes, rales, or rhonchi. No respiratory distress. HEART: Regular rate and rhythm. No murmur ABDOMEN: Soft, non-tender. Non-distended. GENITOURINARY: Deferred EXTREMITIES: Moves all 4 extremities spontaneously. No edema, normal radial and dorsalis pedis pulses bilaterally. No cyanosis. BACK: no cervical, thoracic, lumbar midline tenderness. No saddle anesthesia, normal distal neurovascular exam. Moves all extremities in full range of motion. NEUROLOGICAL: Alert and oriented x3. Normal speech. Cranial nerves II through XII grossly intact. SKIN: Widespread urticaria noted over the arms, legs, back, chest but not on the face or neck. Course - Re-evaluation Re-evalutation: Suspect patient's abdominal cramping, nausea, and rash are all from anaphylaxis. Patient is restless, scratching. Otherwise she is well-appearing. Airway is clear, lungs clear, no facial swelling. Patient immediately given 0.3 mg of IM epinephrine, 50 mg of Benadryl IV, 125 mg of Solu-Medrol IV, 20 of Pepcid IV. Patient almost instantly started improving. Abdominal cramping stopped, nausea resolved, rash started fading rapidly. After 3 minutes there have been significant improvements. Patient will be continually monitored. On reevaluation rash has always completely resolved. Abdominal pain has not returned. I did discuss with patient, decision was made not to perform labs, this appears to be abdominal cramping with anaphylaxis. Her abdomen is soft and benign. Patient reevaluated again, symptoms have completely resolved. She will be monitored for at least 2 hours after epinephrine. Patient has not had any decompensation, she has had full resolution of symptoms. Patient has had a lot of trouble with gastritis therefore she will not be given prednisone at home, she will be placed on high-dose antihistamines, provided with EpiPen, follow-up with primary care. Discussed return precautions in detail. Patient is already on an H2 surinder. Patient states satisfaction and agreement with plan. Stable at time of discharge. - Vital Signs Vital signs: Temp Pulse Resp BP Pulse Ox 98.3 F 60 17 128/77 H 100 11/05/18 04:55 11/05/18 04:55 11/05/18 04:55 11/05/18 04:55 11/05/18 04:55 Discharge - Discharge Clinical Impression: Hives, Abdominal cramping Anaphylaxis Qualifiers: Encounter type: initial encounter Qualified Code(s): T78.2XXA - Anaphylactic shock, unspecified, initial encounter Condition: Stable Disposition: HOME, SELF-CARE Additional Instructions: Your evaluation is consistent with an allergic reaction. Unfortunately the exact cause of this is uncertain. I recommend the antihistamines as prescribed for the next week. Follow-up with primary care, consider allergy testing. In the event of returned/severe allergic reaction (swelling of the face, throat, tongue, lips, return abdominal pain/rash symptoms, etc.), take your epinephrine pen and return immediately to the emergency department. Prescriptions: Cetirizine HCl [Aller-Radu] 1 tab PO TID 7 Days #30 tablet Epinephrine [Epipen 2-Conner] 0.3 mg IM ASDIR PRN #1 packet PRN Reason:
[2018-11-05 04:42] VITALS: BP 128/77
== END 2018-11-05 04:55 | disposition home or self-care (01) ==
LOC: ER 01:42
DX: T78.2XXA Anaphylactic shock, unspecified, initial encounter (principal); L50.9 Urticaria, unspecified; R10.9 Unspecified abdominal pain; R11.0 Nausea
CPT/HCPCS: 99283; 96372; 96374; 96375; J1200; J0171; J2930; S0028

== ENCOUNTER → 2019-07-22 | Outpatient (CLI) | payer MEDICAID ==
--- NOTE | 2019-07-22 15:06 | RADIOLOGY REPORT (SQ) ---
EXAM DESCRIPTION: U/S [id number] TRNABD 1GES W/ODOP COMPLETED DATE/TIME: 07/22/2019 2:56 pm REASON FOR STUDY: Z34.81 ENCOUNTER FOR SUPRVSN OF NORMAL , FIRST TRIMESTER Z34.81 ENCOUNTE R FOR SUPRVSN OF NORMAL , FIRST TRIM COMPARISON: None. TECHNIQUE: Transabdominal static and realtime grayscale images acquired of the pelvis. Additional se lected spectral and color Doppler images recorded. All images stored on PACs. bHCG: Not available. CLINICAL DATES: 10 weeks 2 days. LIMITATIONS: None. FINDINGS: FETUS: Single Living intrauterine . ULTRASOUND EGA: 9 weeks 2 days. ULTRASOUND EBONY: 02/22/2020 EFW: Not applicable less than 20 weeks. CRL: 2.6 cm. FHR: 175 beats per minute. SURVEY: Too early to assess. AMNIOTIC FLUID: Adequate amount. PLACENTA: Not yet developed due to early gestation. SUBCHORIONIC BLEED: Yes. SIZE OF BLEED: 3.2 x 3.0 x 1.0 cm. UTERUS: No masses. No anomalies. CERVICAL LENGTH: 3.4 cm. Closed. RIGHT ADNEXA: Ovary not identified due to poor acoustical window. No adnexal free fluid. No adnexal masses. LEFT ADNEXA: Ovary not identified due to poor acoustical window. No adnexal free fluid. No adnexal masses. FREE FLUID: None. OTHER: No other significant finding. IMPRESSION: LIVING INTRAUTERINE . EGA 9 WEEKS 2 DAYS. Trimester of : First trimester - 0 to 13 weeks. TECHNICAL DOCUMENTATION: JOB ID: [id number] 2010 [employer]- All Rights Reserved rev-09/12 Reading location - IP/workstation name: [email or web address]
== END ==
LOC: RAD 13:45
PROVIDERS: ATTEND Nurse Practitioner Family
DX: Z34.81 Encounter for supervision of other normal pregnancy, first trimester (principal)
CPT/HCPCS: 76801

== ENCOUNTER 2019-12-20 15:08 | Emergency (ER) | payer MEDICAID ==
--- NOTE | 2019-12-20 15:31 | ER Document Report ---
ED Medical Screen (RME) - General Chief Complaint: Abdominal Pain Stated Complaint: ABDOMINAL/BACK PAIN Primary Care Provider: BRIANNA NICHOLS ARNP [Primary Care Provider] - Follow up as needed Notes: Patient is a 39-year-old -[place] female with a history of cholecystectomy with related pancreatitis who presents to the emergency department with a chief complaint of epigastric abdominal pain. She states began a few hours ago. She states that this feels similar to the pancreatitis she had in the past. She states over the past month she has had these episodes of waxing and waning discomfort. She states she has not had it evaluated and today she was no longer tolerable of the discomfort and decided to come for evaluation. She admits to being associated with some nausea but denies any vomiting or diarrhea. Denies any fever, chills or night sweats. No chest pain or shortness of breath. I have treated and performed a rapid initial assessment of this patient. A comprehensive ED assessment and evaluation of the patient, analysis of test results and completion of medical decision making process will be conducted by additional ED providers. PHYSICAL EXAMINATION: GENERAL: Well-appearing, well-nourished and in no acute distress. A&Ox4. Answers questions appropriately. TRAVEL OUTSIDE OF THE [place] IN LAST 30 DAYS: No - Related Data Allergies/Adverse Reactions: aspirin [Aspirin] Allergy (Verified 04/13/18 12:05) mushroom Allergy (Verified 11/05/18 02:34) Past Medical History - Past Medical History Cardiac Medical History: Denies: Hx Coronary Artery Disease, Hx Heart Attack, Hx Hypertension Pulmonary Medical History: Denies: Hx Asthma, Hx Bronchitis, Hx COPD, Hx Pneumonia Neurological Medical History: Denies: Hx Cerebrovascular Accident, Hx Seizures Renal/ Medical History: Denies: Hx Peritoneal Dialysis GI Medical History: Musculoskeltal Medical History: Reports Hx Arthritis - Painful Rt wrist/hand (? Carpal tunnel syndrome) Psychiatric Medical History: Reports: Hx Anxiety Infectious Medical History: Past Surgical History: Reports: Hx Cholecystectomy. Denies: Hx Hysterectomy - Immunizations Immunizations up to date: Yes Hx Diphtheria, Pertussis, Tetanus Vaccination: Yes - 2016 Physical Exam - Vital signs Vitals: Temp Pulse Resp BP Pulse Ox 98.5 F 106 H 20 134/99 H 100 12/20/19 15:25 12/20/19 15:25 12/20/19 15:25 12/20/19 15:25 12/20/19 15:25 Course - Vital Signs Vital signs: Temp Pulse Resp BP Pulse Ox 98.5 F 106 H 20 134/99 H 100 12/20/19 15:25 12/20/19 15:25 12/20/19 15:25 12/20/19 15:25 12/20/19 15:25 Doctor's Discharge - Discharge Referrals: BRIANNA NICHOLS ARNP [Primary Care Provider] - Follow up as needed
[2019-12-20 16:13] LABS: APPEARANCE,URINE CLOUDY; BILIRUBIN,URINE NEGATIVE (NEGATIVE); COLOR,URINE YELLOW; GLUCOSE, URINE NEGATIVE (NEGATIVE); KETONES,URINE NEGATIVE (NEGATIVE); PROTEIN,URINE NEGATIVE (NEGATIVE); URINE SPECIFIC GRAVITY 1.018
[2019-12-20 16:16] LABS: ALBUMIN 4.2 g/dL (3.5-5.0); ALKALINE PHOSPHATASE 119 U/L (38-126); ANION GAP 8 (5-19); ASPARTATE AMINO TRANSFERASE 83 U/L (14-36); BILIRUBIN,DIRECT 0.2 mg/dL (0.0-0.4); BILIRUBIN,TOTAL 0.6 mg/dL (0.2-1.3); BLOOD UREA NITROGEN 5 mg/dL (7-20); CALCIUM 8.9 mg/dL (8.4-10.2); CARBON DIOXIDE 25 mmol/L (22-30); CHLORIDE 107 mmol/L (98-107); GLUCOSE 111 mg/dL (75-110); POTASSIUM 3.9 mmol/L (3.6-5.0)
[2019-12-20 17:24] LABS: ABSOLUTE EOSINOPHILS # (AUTO) 0.1 10^3/uL (0.0-0.6); ABSOLUTE LYMPHOCYTES (AUTO) 1.5 10^3/uL (0.5-4.7); ABSOLUTE MONOCYTES (AUTO) 0.7 10^3/uL (0.1-1.4); ABSOLUTE NEUT (AUTO) 12.3 10^3/uL (1.7-8.2); BASOPHILS % (AUTO) 0.3 % (0-2); EOSINOPHILS % (AUTO) 0.5 % (0-6); HEMATOCRIT 40.7 % (36.0-47.0); HEMOGLOBIN 13.4 g/dL (12.0-15.5); MEAN CORPUSCULAR HEMOGLOBIN 29.5 pg (27.0-33.4); MEAN CORPUSCULAR HGB CONC 32.9 g/dL (32.0-36.0); MEAN CORPUSCULAR VOLUME 90 fl (80-97); MONOCYTES % (AUTO) 4.9 % (3-13); PLATELET COUNT 182 10^3/uL (150-450); RED BLOOD COUNT 4.53 10^6/uL (3.72-5.28); RED CELL DISTRIBUTION WIDTH 12.4 % (11.5-14.0); SEGMENTED NEUTROPHILS % (AUTO) 84.3 % (42-78); TOTAL CELLS COUNTED % (AUTO) 100 %; WHITE BLOOD COUNT 14.6 10^3/uL (4.0-10.5)
[2019-12-20 20:20] VITALS: BP 148/92
[2019-12-20] MEDS ORDERED: ONDANSETRON 4 MG TAB.RAPDIS PO ONE (20:33)
[2019-12-20] MEDS ORDERED: OXYCODONE-ACETAMINOPHEN 5-325 MG TABLET PO ONE (20:33)
[2019-12-20] MEDS ORDERED: SUCRALFATE 1 GM TABLET PO ONE (20:33)
[2019-12-20] MEDS ORDERED: FAMOTIDINE 20 MG TABLET PO ONE (20:33)
--- NOTE | 2019-12-20 20:39 | ER Document Report ---
ED GI/ - General Chief Complaint: Epigastric Pain Stated Complaint: ABDOMINAL/BACK PAIN Time Seen by Provider: 12/20/19 20:24 Primary Care Provider: BRIANNA NICHOLS ARNP [NO LOCAL MD] - Follow up as needed Notes: Patient is a 39-year-old female that comes emergency department for chief complaint of upper abdominal pain. She states this is been going on intermittently for the past several weeks, she states at times it is significantly worse and she feels nausea. She denies vomiting, fever/chills, chest pain, flank pain, or abnormal bowel movements. She states symptoms are significantly worse with food and only worse with food. She has had a cholecystectomy, she had pancreatitis from gallstones in the past and states this actually feels similar. She does have a history of GERD but is not on any medications for this. She denies any other surgeries, she denies , she takes no daily medications currently. She had endoscopy several years ago that was normal at that time. She denies smoking, alcohol, recreational drugs. TRAVEL OUTSIDE OF THE [place] IN LAST 30 DAYS: No - Related Data Allergies/Adverse Reactions: aspirin [Aspirin] Allergy (Verified 12/20/19 20:09) mushroom Allergy (Verified 12/20/19 20:09) Past Medical History - General Information source: Patient - Social History Smoking Status: Never Smoker Frequency of alcohol use: None Drug Abuse: None Lives with: Family Family History: Hypertension - Past Medical History Cardiac Medical History: Denies: Hx Coronary Artery Disease, Hx Heart Attack, Hx Hypertension Pulmonary Medical History: Denies: Hx Asthma, Hx Bronchitis, Hx COPD, Hx Pneumonia Neurological Medical History: Denies: Hx Cerebrovascular Accident, Hx Seizures Renal/ Medical History: Denies: Hx Peritoneal Dialysis GI Medical History: Reports: Hx Gastroesophageal Reflux Disease Musculoskeletal Medical History: Reports Hx Arthritis - Painful Rt wrist/hand (? Carpal tunnel syndrome) Psychiatric Medical History: Reports: Hx Anxiety Infectious Medical History: Past Surgical History: Reports: Hx Cholecystectomy. Denies: Hx Hysterectomy - Immunizations Immunizations up to date: Yes Hx Diphtheria, Pertussis, Tetanus Vaccination: Yes - 2017 Review of Systems - Review of Systems Constitutional: No symptoms reported EENT: No symptoms reported Cardiovascular: No symptoms reported Respiratory: No symptoms reported Gastrointestinal: See HPI Genitourinary: No symptoms reported Female Genitourinary: No symptoms reported Musculoskeletal: No symptoms reported Skin: No symptoms reported Hematologic/Lymphatic: No symptoms reported Neurological/Psychological: No symptoms reported Physical Exam - Vital signs Vitals: Temp Pulse Resp BP Pulse Ox 98.5 F 106 H 20 134/99 H 100 12/20/19 15:25 12/20/19 15:25 12/20/19 15:25 12/20/19 15:25 12/20/19 15:25 - Notes Notes: GENERAL: Alert, interacts well. No acute distress. HEAD: Normocephalic, atraumatic. EYES: Pupils equal, round, and reactive to light. Extraocular movements intact. ENT: Oral mucosa moist, tongue midline. Oropharynx unremarkable. Airway patent. NECK: Full range of motion. Supple. Trachea midline. No lymphadenopathy. LUNGS: Clear to auscultation bilaterally, no wheezes, rales, or rhonchi. No respiratory distress. Non-tender chest wall. HEART: Regular rate and rhythm. No murmur ABDOMEN: There is mild generalized tenderness in the epigastric and left upper quadrant areas, right upper quadrant unremarkable, remaining abdomen soft and benign with no concerning findings. GENITOURINARY: Deferred EXTREMITIES: Moves all 4 extremities spontaneously. No edema, normal radial and dorsalis pedis pulses bilaterally. No cyanosis. BACK: no cervical, thoracic, lumbar midline tenderness. No saddle anesthesia, normal distal neurovascular exam. Moves all extremities in full range of motion. NEUROLOGICAL: Alert and oriented x3. Normal speech. Cranial nerves II through XII grossly intact. Strength 5/5 in all extremities. PSYCH: Normal affect, normal mood. SKIN: Warm, dry, normal turgor. No rashes or lesions noted. Course - Re-evaluation Re-evalutation: Patient alert and well-appearing. She has some mild left upper quadrant tenderness on my exam, remaining abdomen unremarkable. Patient tolerated p.o. without difficulty. CBC does show mild leukocytosis and chemistry shows very mildly elevated LFTs, however patient's abdominal exam is reassuring and her history of cholecystectomy significantly reduces my suspicion of acute abdomen. Symptoms are significantly worse with food in addition to this. Based on her work-up, evaluation, and symptoms I mow strongly suspect gastritis/upper gastrointestinal inflammation. I discussed work-up details with patient, treatment options, follow-up instructions, and return precautions in detail. Patient states understanding and agreement with plan. Stable and well-appearing at time of discharge with no complaints. - Vital Signs Vital signs: Temp Pulse Resp BP Pulse Ox 98.5 F 78 16 148/92 H 99 12/20/19 20:19 12/20/19 20:19 12/20/19 20:19 12/20/19 20:19 12/20/19 20:19 - Laboratory Result Diagrams: 12/20/19 17:00 12/20/19 15:45 Laboratory results interpreted by me: 12/20/19 12/20/19 12/20/19 15:45 15:45 17:00 WBC 14.6 H Lymph % (Auto) 10.0 L Absolute Neuts (auto) 12.3 H Seg Neutrophils % 84.3 H BUN 5 L Glucose 111 H AST 83 H ALT 43 H Urine Blood LARGE H Urine Urobilinogen 2.0 H Leukocyte Esterase Rfl TRACE H Discharge - Discharge Clinical Impression: Upper abdominal pain, Nausea Condition: Stable Disposition: HOME, SELF-CARE Additional Instructions: Your evaluation and examination is most consistent with gastritis, inflammation of the upper gastrointestinal tract. You can take Zofran for nausea, take Carafate and Pepcid as prescribed to help treat this, you can take additional Rolaids, Tums, Maalox, etc. if needed. You can take Tylenol for pain. Avoid NSAIDs, alcohol, smoking, caffeine, spicy food. Start with clear fluids, progress to bland diet. Follow-up with primary care for additional evaluation and treatment including possible H. pylori testing and recheck of your liver enzymes. Return if you worsen including uncontrolled vomiting, vomiting blood, black stools, severe pain, fever of 100.4 or greater, or any other concerning or worsening symptoms. Prescriptions: Sucralfate [Carafate 1 gm Tablet] 1 gm PO QID #20 tablet Famotidine [Pepcid 20 mg Tablet] 20 mg PO BID #20 tablet Ondansetron [Zofran Odt 4 mg Tablet] 1 - 2 tab PO Q4H PRN #15 tab.rapdis PRN Reason: For Nausea/Vomiting Referrals: BRIANNA NICHOLS ARNP [NO LOCAL MD] - Follow up as needed
== END 2019-12-20 21:00 | disposition home or self-care (01) ==
LOC: ER 15:08
DX: R10.10 Upper abdominal pain, unspecified (principal); R11.0 Nausea; R10.13 Epigastric pain; M54.9 Dorsalgia, unspecified; R10.12 Left upper quadrant pain; R79.89 Other specified abnormal findings of blood chemistry; Z88.8 Allergy status to other drugs, medicaments and biological substances
CPT/HCPCS: 99283; 36415; 83690; 84703; 85025; 80053; 81001; J3490 ×2; S0119

== ENCOUNTER 2019-12-21 21:15 | Emergency (ER) | payer MEDICAID ==
[2019-12-21] MEDS ORDERED: LIDOCAINE 2% VISCOUS SOLN 15 ML UDCUP PO ONE (22:04)
[2019-12-21] MEDS ORDERED: MAG HYDROX/AL HYDROX/SIMETH SUSP 30 ML UDCUP PO ONE (22:04)
[2019-12-21] MEDS ORDERED: PREDNISONE 20 MG TABLET PO ONE (22:05)
[2019-12-21] MEDS ORDERED: DIPHENHYDRAMINE HCL 50 MG CAPSULE PO ONE (22:05)
--- NOTE | 2019-12-21 22:07 | ER Document Report ---
ED Medical Screen (RME) - General Chief Complaint: Hives Stated Complaint: POSSIBLE HIVES,UPPER EPIGASTRIC PAIN Primary Care Provider: HERMINIO ROJAS NP [Primary Care Provider] - Follow up as needed Notes: Patient is a 39-year-old -[place] female with a history of gastritis, chronic in nature who presents to the emergency department with a chief complaint of itching and rash. She states the rash began today. She was seen here yesterday given Carafate, Pepcid and Zofran. She took all those medications in addition to Tylenol today. She states shortly after she began having "hives" all over. Complaining of pruritus. Denies any airway compromise, tongue or throat swelling or difficulty with secretions. She reports that her stomach is still bothering her despite taking these medications and now she is having the reaction. She does not see a architecture intern. She is a non-smoker and does not have a history of atrial fibrillation. I have treated and performed a rapid initial assessment of this patient. A comprehensive ED assessment and evaluation of the patient, analysis of test results and completion of medical decision making process will be conducted by additional ED providers. PHYSICAL EXAMINATION: GENERAL: Well-appearing, well-nourished and in no acute distress. A&Ox4. Answers questions appropriately. TRAVEL OUTSIDE OF THE [place] IN LAST 30 DAYS: No - Related Data Allergies/Adverse Reactions: aspirin [Aspirin] Allergy (Verified 12/21/19 21:59) mushroom Allergy (Verified 12/21/19 21:59) Home Medications: CARAFATE. ZOFRAN Past Medical History - Social History Frequency of alcohol use: None Drug Abuse: None - Past Medical History Cardiac Medical History: Denies: Hx Coronary Artery Disease, Hx Heart Attack, Hx Hypertension Pulmonary Medical History: Denies: Hx Asthma, Hx Bronchitis, Hx COPD, Hx Pneumonia Neurological Medical History: Denies: Hx Cerebrovascular Accident, Hx Seizures Renal/ Medical History: Denies: Hx Peritoneal Dialysis GI Medical History: Reports: Hx Gastroesophageal Reflux Disease Musculoskeltal Medical History: Reports Hx Arthritis - Painful Rt wrist/hand (? Carpal tunnel syndrome) Psychiatric Medical History: Reports: Hx Anxiety Infectious Medical History: Past Surgical History: Reports: Hx Cholecystectomy. Denies: Hx Hysterectomy - Immunizations Immunizations up to date: Yes Hx Diphtheria, Pertussis, Tetanus Vaccination: Yes - 2016 Physical Exam - Vital signs Vitals: Temp Pulse Resp BP Pulse Ox 97.7 F 89 16 128/96 H 100 12/21/19 21:23 12/21/19 21:23 12/21/19 21:23 12/21/19 21:23 12/21/19 21:23 Course - Vital Signs Vital signs: Temp Pulse Resp BP Pulse Ox 97.7 F 89 16 128/96 H 100 12/21/19 21:23 12/21/19 21:23 12/21/19 21:23 12/21/19 21:23 12/21/19 21:23 Doctor's Discharge - Discharge Referrals: HERMINIO ROJAS [employer]TRASONIC HAND SOLDERER [Primary Care Provider] - Follow up as needed
[2019-12-21 22:43] LABS: ABSOLUTE BASOPHILS # (AUTO) 0.1 10^3/uL (0.0-0.2); ABSOLUTE EOSINOPHILS # (AUTO) 0.1 10^3/uL (0.0-0.6); ABSOLUTE LYMPHOCYTES (AUTO) 2.5 10^3/uL (0.5-4.7); ABSOLUTE MONOCYTES (AUTO) 0.7 10^3/uL (0.1-1.4); ABSOLUTE NEUT (AUTO) 6.7 10^3/uL (1.7-8.2); BASOPHILS % (AUTO) 0.5 % (0-2); EOSINOPHILS % (AUTO) 1.2 % (0-6); HEMATOCRIT 44.5 % (36.0-47.0); HEMOGLOBIN 14.7 g/dL (12.0-15.5); LYMPHOCYTES % (AUTO) 25.1 % (13-45); MEAN CORPUSCULAR HEMOGLOBIN 29.7 pg (27.0-33.4); MEAN CORPUSCULAR HGB CONC 33.1 g/dL (32.0-36.0); MEAN CORPUSCULAR VOLUME 90 fl (80-97); MONOCYTES % (AUTO) 7.2 % (3-13); PLATELET COUNT 196 10^3/uL (150-450); RED BLOOD COUNT 4.96 10^6/uL (3.72-5.28); RED CELL DISTRIBUTION WIDTH 12.4 % (11.5-14.0); TOTAL CELLS COUNTED % (AUTO) 100 %; WHITE BLOOD COUNT 10.1 10^3/uL (4.0-10.5)
[2019-12-21 23:03] LABS: ALBUMIN 4.3 g/dL (3.5-5.0); ALKALINE PHOSPHATASE 171 U/L (38-126); ANION GAP 8 (5-19); ASPARTATE AMINO TRANSFERASE 304 U/L (14-36); BILIRUBIN,DIRECT 0.8 mg/dL (0.0-0.4); BILIRUBIN,TOTAL 1.2 mg/dL (0.2-1.3); BLOOD UREA NITROGEN 6 mg/dL (7-20); CALCIUM 8.8 mg/dL (8.4-10.2); CARBON DIOXIDE 29 mmol/L (22-30); CHLORIDE 103 mmol/L (98-107); GLUCOSE 120 mg/dL (75-110); POTASSIUM 3.7 mmol/L (3.6-5.0); TOTAL PROTEIN 7.7 g/dL (6.3-8.2)
--- NOTE | 2019-12-22 03:06 | ER Document Report ---
ED General - General TRAVEL OUTSIDE OF THE [place] IN LAST 30 DAYS: No - Related Data Home Medications: CARAFATE. ZOFRAN <MELISSA RICHARDSON - Last Filed: 12/22/19 03:30> <EMMY KING - Last Filed: 12/22/19 09:36> - General Chief Complaint: Hives Stated Complaint: POSSIBLE HIVES,UPPER EPIGASTRIC PAIN Time Seen by Provider: 12/22/19 02:19 Primary Care Provider: HERMINIO ROJAS NP [NURSE PRACTITIONER] - Follow up as needed - [facility] Notes: Patient is a 59-year-old female who presents to the emergency department for evaluation. She was seen here yesterday for abdominal pain. She states this epigastric, radiates around her abdomen on the right and into her back. She states it feels similar to when she needed to have her gallbladder removed in the past. She has had some nausea but no emesis. She states she really did not have much in the way of appetite. She only ate some grapes today. Mildly loose bowel movements. No urinary symptoms. Patient states that she was seen here yesterday and given Carafate, Pepcid, Zofran. She took these medications earlier today. This evening she had a shower. She states after the shower she developed hives. They were itching. It was on bilateral arms, upper torso, upper legs. She states that these resolved after arrival in the emergency department. She did not take any medications to help with that. She denies any associated swelling of her lips or tongue. No difficulty breathing or swallowing. (MELISSA RICHARDSON) - Related Data Allergies/Adverse Reactions: aspirin [Aspirin] Allergy (Verified 12/21/19 21:59) mushroom Allergy (Verified 12/21/19 21:59) Past Medical History - General Information source: Patient - Social History Smoking Status: Former Smoker Frequency of alcohol use: None Drug Abuse: None Family History: Hypertension - Past Medical History Cardiac Medical History: Denies: Hx Coronary Artery Disease, Hx Heart Attack, Hx Hypertension Pulmonary Medical History: Denies: Hx Asthma, Hx Bronchitis, Hx COPD, Hx Pneumonia Neurological Medical History: Denies: Hx Cerebrovascular Accident, Hx Seizures Renal/ Medical History: Denies: Hx Peritoneal Dialysis GI Medical History: Reports: Hx Gastroesophageal Reflux Disease Musculoskeletal Medical History: Reports Hx Arthritis - Painful Rt wrist/hand (? Carpal tunnel syndrome) Psychiatric Medical History: Reports: Hx Anxiety Infectious Medical History: Past Surgical History: Reports: Hx Cholecystectomy. Denies: Hx Hysterectomy - Immunizations Immunizations up to date: Yes Hx Diphtheria, Pertussis, Tetanus Vaccination: Yes - 2017 <MELISSA RICHARDSON - Last Filed: 12/22/19 03:30> Review of Systems - Review of Systems Constitutional: No symptoms reported EENT: No symptoms reported Cardiovascular: No symptoms reported Respiratory: No symptoms reported Gastrointestinal: See HPI Genitourinary: No symptoms reported Musculoskeletal: No symptoms reported Skin: See HPI Neurological/Psychological: No symptoms reported <MELISSA RICHARDSON - Last Filed: 12/22/19 03:30> Physical Exam <MELISSA RICHARDSON - Last Filed: 12/22/19 03:30> - Vital signs Vitals: Temp Pulse Resp BP Pulse Ox 97.7 F 89 16 128/96 H 100 12/21/19 21:23 12/21/19 21:23 12/21/19 21:23 12/21/19 21:23 12/21/19 21:23 - Notes Notes: Vital signs reviewed, please refer to chart. Head is normocephalic, atraumatic. Pupils equal round, reactive to light. Neck is supple without meningismus. Heart is regular rate and rhythm. Lungs are clear to auscultation bilaterally. Abdomen is soft, moderately tender in the epigastrium and right upper quadrant without rebound or guarding, normoactive bowel sounds throughout. Extremities without cyanosis, clubbing. Posterior calves are nontender. Peripheral pulses are equal. Skin is warm and dry. She has some mild erythema, consistent with improving urticaria, noted to bilateral upper posterior arms. Patient is awake, alert, neurological exam is nonfocal. (MELISSA RICHARDSON) Course - Laboratory Result Diagrams: 12/21/19 22:30 12/21/19 22:30 <MELISSA RICHARDSON - Last Filed: 12/22/19 03:30> - Laboratory Result Diagrams: 12/21/19 22:30 12/21/19 22:30 <EMMY KING - Last Filed: 12/22/19 09:36> - Re-evaluation Re-evalutation: 12/22/19 03:05 Patient presents to the emergency department for evaluation. She had laboratory investigations as ordered through triage. Her LFTs are elevated today, significantly so when compared to just yesterday. Patient is tender. I looked through her history. She has had an MRCP in the past which failed to reveal any retained stone. I spoke with Dr. Corey, on-call dye house helper. He does not perform ERCPs, but does think it is reasonable to hold the patient for an MRCP for further evaluation. Patient is amenable to this plan. She is kept n.p.o. She is currently stable. 12/22/19 03:30 MRCP ordered. Patient is stable. Assuming negative MRCP, patient will be sent home, referral on to our on-call dye house helper, Dr. Corey. Of course if a retained stone is identified, patient will require transfer. Care of this patient will be turned over to my ED colleague at the end of my shift. (MELISSA RICHARDSON) - Vital Signs Vital signs: Temp Pulse Resp BP Pulse Ox 97.9 F 74 18 151/90 H 99 12/22/19 00:54 12/22/19 03:15 12/22/19 03:15 12/22/19 03:15 12/22/19 03:15 - Laboratory Laboratory results interpreted by me: 12/21/19 22:30 BUN 6 L Glucose 120 H Direct Bilirubin 0.8 H AST 304 H ALT 192 H Alkaline Phosphatase 171 H Discharge <MELISSA RICHARDSON - Last Filed: 12/22/19 03:30> <EMMY KING - Last Filed: 12/22/19 09:36> - Discharge Clinical Impression: Epigastric pain, Urticaria, Elevated LFTs Condition: Stable Disposition: HOME, SELF-CARE Additional Instructions: Please follow-up with your primary care doctor and with GI, have attached referral information. You will need to have your liver function tests rechecked to ensure that it is going down. Please return to the emergency department for fever, yellowing of skin, inability to eat or drink, or any other concerning symptoms. Referrals: HERMINIO ROJAS NP [NURSE PRACTITIONER] - Follow up as needed NAHUM COREY MD [ACTIVE STAFF] - Follow up as needed
--- NOTE | 2019-12-22 08:42 | RADIOLOGY REPORT (SQ) ---
EXAM DESCRIPTION: MRI ABDOMEN WITHOUT IMAGES COMPLETED DATE/TIME: 12/22/2019 7:56 am REASON FOR STUDY: elevated LFTs, eval for CBD stone COMPARISON: 09/07/2016 TECHNIQUE: Noncontrast MRCP. Source and MIP images reviewed. LIMITATIONS: None. FINDINGS: GALLBLADDER: Surgically absent. INTRAHEPATIC DUCTS: Mild prominence of the central bile ducts slightly improved when compared to 2017 . EXTRAHEPATIC DUCTS: Common bile duct is measured at 7.7 mm. Previously the duct measured up to 8.4 m m. No filling defects. PANCREAS: Generally homogeneous, no gross mass or significant signal alteration. No surrounding infl ammatory changes or fluid. Pancreatic duct is normal. LIVER, SPLEEN, KIDNEYS, ADRENALS: No significant abnormality. VESSELS: No evidence of aneurysm. Grossly appropriate flow voids in the major vascular structures. LUNG BASES: Grossly clear. OTHER: No other significant finding. IMPRESSION: Mild prominence of the central intrahepatic biliary ducts and common bile duct. Overall ducts are slightly smaller in size when compared to 2017. No intraluminal filling defects. TECHNICAL DOCUMENTATION: JOB ID: [id number] 2010 [employer]- All Rights Reserved Reading location - IP/workstation name: [email or web address]
--- NOTE | 2019-12-22 09:31 | ER Document Report ---
Doctor's Note Notes: 12/22/19 09:26 Patient in signout, pending MRCP. Images reviewed and radiology report reviewed. Per radiology, no filling defect and ducts are smaller in appearance than previous study. 12/22/19 09:31 I went in to update patient on results. She is feeling better. She has tolerated p.o. I discussed with her need to have close follow-up with PCP and GI to have her LFTs rechecked. She was given strict return precautions. She is stable at time of discharge.
[2019-12-22 09:55] VITALS: BP 131/80
== END 2019-12-22 09:53 | disposition home or self-care (01) ==
LOC: ER 21:15
DX: L50.9 Urticaria, unspecified (principal); R10.13 Epigastric pain; R79.89 Other specified abnormal findings of blood chemistry; M54.9 Dorsalgia, unspecified; R11.0 Nausea; R19.7 Diarrhea, unspecified; Z88.8 Allergy status to other drugs, medicaments and biological substances; Z87.891 Personal history of nicotine dependence
CPT/HCPCS: 99284; 36415; 83690; 85025; 80053; 74181; J3490 ×3; J7512

== ENCOUNTER 2019-12-30 17:29 | Emergency (ER) | payer MEDICAID ==
[2019-12-30] MEDS ORDERED: CEFTRIAXONE 1 GM/D5W RTU 1 GM/50 ML RTUPB IV ONE (19:21)
[2019-12-30] MEDS ORDERED: ACETAMINOPHEN 325 MG TABLET PO ONE (19:24)
[2019-12-30] MEDS ORDERED: ONDANSETRON HCL INJ/PF 4 MG/2 ML SDV IV ONE (19:24)
--- NOTE | 2019-12-30 19:25 | ER Document Report ---
ED General - General Chief Complaint: Fever Stated Complaint: FEVER Time Seen by Provider: 12/30/19 19:06 Primary Care Provider: ANTONETTE ACEVEDO PA-C [Primary Care Provider] - Follow up as needed Mode of Arrival: Ambulatory Information source: Patient Notes: 39-year-old female past medical history significant for pancreatitis presents to the emergency room with persistent abdominal pain for the past 10 days today. Has been seen emergency room twice without a definitive explanation for her pain. States she started with a fever of 104 today along with some nausea has been taking Tylenol without relief. Denies any urinary symptoms. Denies recent travel no COVID-19 exposure peer no bad food she can think of. No other ill contacts. TRAVEL OUTSIDE OF THE [place] IN LAST 30 DAYS: No - Related Data Allergies/Adverse Reactions: aspirin [Aspirin] Allergy (Verified 12/30/19 19:04) mushroom Allergy (Verified 12/30/19 19:04) Past Medical History - General Information source: Patient - Social History Smoking Status: Never Smoker Frequency of alcohol use: None Drug Abuse: None Family History: Hypertension Patient has homicidal ideation: No - Past Medical History Cardiac Medical History: Denies: Hx Coronary Artery Disease, Hx Heart Attack, Hx Hypertension Pulmonary Medical History: Denies: Hx Asthma, Hx Bronchitis, Hx COPD, Hx Pneumonia Neurological Medical History: Denies: Hx Cerebrovascular Accident, Hx Seizures Renal/ Medical History: Denies: Hx Peritoneal Dialysis GI Medical History: Reports: Hx Gastroesophageal Reflux Disease, Other - Pancreatitis Musculoskeletal Medical History: Reports Hx Arthritis - Painful Rt wrist/hand (? Carpal tunnel syndrome) Psychiatric Medical History: Reports: Hx Anxiety Infectious Medical History: Past Surgical History: Reports: Hx Cholecystectomy. Denies: Hx Hysterectomy - Immunizations Immunizations up to date: Yes Hx Diphtheria, Pertussis, Tetanus Vaccination: Yes - 2017 Review of Systems - Review of Systems Constitutional: Fever, Malaise EENT: No symptoms reported Cardiovascular: No symptoms reported Respiratory: No symptoms reported Gastrointestinal: Abdominal pain, Nausea Genitourinary: No symptoms reported Musculoskeletal: No symptoms reported Skin: No symptoms reported Neurological/Psychological: No symptoms reported -: Yes All other systems reviewed and negative Physical Exam - Vital signs Vitals: Temp Pulse Resp BP Pulse Ox 100.7 F H 135 H 22 H 145/90 H 100 12/30/19 19:00 12/30/19 19:00 12/30/19 19:00 12/30/19 19:00 12/30/19 19:00 - General General appearance: Appears well, Alert In distress: Mild - HEENT Head: Normocephalic, Atraumatic Eyes: Normal Pupils: PERRL Ears: Normal External canal: Normal Tympanic membrane: Normal Pharynx: Normal - Respiratory Respiratory status: No respiratory distress Chest status: Nontender Breath sounds: Normal Chest palpation: Normal - Cardiovascular Rhythm: Tachycardia Heart sounds: Normal auscultation Murmur: No - Abdominal Inspection: Normal Distension: No distension Bowel sounds: Normal Tenderness: Nontender Organomegaly: No organomegaly - Neurological Neuro grossly intact: Yes Cognition: Normal Orientation: AAOx4 Fede Coma Scale Eye Opening: Spontaneous Fede Coma Scale Verbal: Oriented Fede Coma Scale Motor: Obeys Commands Fede Coma Scale Total: 15 Speech: Normal Motor strength normal: LUE, RUE, LLE, RLE Sensory: Normal - Skin Skin Temperature: Warm Skin Moisture: Dry Skin Color: Normal Course - Re-evaluation Re-evalutation: 12/30/19 20:40 Patient with persistent nausea and vomiting. Continues with generalized abdominal pain. Reglan and morphine was ordered. CT scan pending. 12/30/19 22:26 Patient is resting comfortably afebrile, nontoxic-appearing, tolerates p.o. fluids. Vital signs have improved. No longer tachycardic. Reviewed CAT scan and lab results with patient. Aware that we need to do an additional lactic acid test at 2230. Discussed with patient if lactic has improved patient will be stable to be discharged home. 12/30/19 22:45 Repeat lactic 1.1. Patient tolerates p.o. fluids. She is afebrile. No longer tachycardic. Counseled to rest, push fluids, Tylenol and or Motrin as needed for fevers and body aches. Outpatient follow-up with primary care physician for her left ovarian cyst. Patient was given strict return to the emergency room guidelines. Return for any new or worsening symptoms. All questions were answered. Patient verbalized understanding and agrees with plan of care. - Vital Signs Vital signs: Temp Pulse Resp BP Pulse Ox 99.0 F 94 18 136/87 H 99 12/30/19 22:04 12/30/19 22:04 12/30/19 22:04 12/30/19 22:04 12/30/19 22:04 - Laboratory Result Diagrams: 12/30/19 19:40 12/30/19 19:40 Laboratory results interpreted by me: 12/30/19 12/30/19 12/30/19 19:40 19:40 19:40 WBC 12.3 H Plt Count 137 L Seg Neuts % (Manual) 89 H Band Neutrophils % 2 L Lymphocytes % (Manual) 4 L Abs Neuts (Manual) 11.2 H Potassium 3.5 L Carbon Dioxide 20 L BUN 6 L Glucose 156 H Lactic Acid 2.3 H Total Bilirubin 1.5 H Direct Bilirubin 0.5 H AST 43 H ALT 61 H Alkaline Phosphatase 158 H Urine Ketones 12/30/19 19:40 WBC Plt Count Seg Neuts % (Manual) Band Neutrophils % Lymphocytes % (Manual) Abs Neuts (Manual) Potassium Carbon Dioxide BUN Glucose Lactic Acid Total Bilirubin Direct Bilirubin AST ALT Alkaline Phosphatase Urine Ketones 20 H - Diagnostic Test Radiology reviewed: Reports reviewed Discharge - Discharge Clinical Impression: Left ovarian cyst Nausea and vomiting Qualifiers: Vomiting type: unspecified Vomiting Intractability: non-intractable Qualified Code(s): R11.2 - Nausea with vomiting, unspecified Fever Qualifiers: Fever type: unspecified Qualified Code(s): R50.9 - Fever, unspecified Condition: Stable Disposition: HOME, SELF-CARE Instructions: Fever ([facility]), Ovarian Cyst ([facility]), Vomiting ([facility]) Additional Instructions: Rest, push fluids, Tylenol and/or Motrin as needed for fever and pain. Follow- up with your primary care physician on your ovarian cyst. Also follow-up with your primary care physician if not improving in 2 to 3 days. Return to the emergency room for any new or worsening symptoms. Referrals: ANTONETTE ACEVEDO PA-C [Primary Care Provider] - Follow up as needed
[2019-12-30] MEDS ORDERED: METOCLOPRAMIDE HCL INJ/PF 10 MG/2 ML SDV IV ONE ×2 (20:00→20:44)
[2019-12-30] MEDS: RINGERS SOLUTION,LACTATED 1,000 ML IV PRN ×2 (20:08→20:09)
[2019-12-30 20:10] LABS: HEMATOCRIT 39.3 % (36.0-47.0); HEMOGLOBIN 13.4 g/dL (12.0-15.5); MEAN CORPUSCULAR HEMOGLOBIN 29.7 pg (27.0-33.4); MEAN CORPUSCULAR HGB CONC 34.1 g/dL (32.0-36.0); MEAN CORPUSCULAR VOLUME 87 fl (80-97); PLATELET COUNT 137 10^3/uL (150-450); RED CELL DISTRIBUTION WIDTH 12.6 % (11.5-14.0); WHITE BLOOD COUNT 12.3 10^3/uL (4.0-10.5)
[2019-12-30 20:19] LABS: INTERNATIONAL RATION (INR) 0.94; PROTHROMBIN TIME 12.8 SEC (11.4-15.4)
[2019-12-30 20:27] LABS: ALBUMIN 4.4 g/dL (3.5-5.0); ALKALINE PHOSPHATASE 158 U/L (38-126); ANION GAP 13 (5-19); ASPARTATE AMINO TRANSFERASE 43 U/L (14-36); BILIRUBIN,DIRECT 0.5 mg/dL (0.0-0.4); BILIRUBIN,TOTAL 1.5 mg/dL (0.2-1.3); BLOOD UREA NITROGEN 6 mg/dL (7-20); CALCIUM 9.3 mg/dL (8.4-10.2); CARBON DIOXIDE 20 mmol/L (22-30); CHLORIDE 104 mmol/L (98-107); GLUCOSE 156 mg/dL (75-110); POTASSIUM 3.5 mmol/L (3.6-5.0)
--- NOTE | 2019-12-30 20:32 | RADIOLOGY REPORT (SQ) ---
EXAM DESCRIPTION: XR CHEST 1 VIEW COMPLETED DATE/TME: 12/30/2019 19:22 CLINICAL HISTORY: 39 years, Female, fever COMPARISON: Chest x-ray 01/15/2018. TECHNIQUE: Upright portable chest x-ray FINDINGS: Cardiomediastinal silhouette is not enlarged. No suspicious lung pleural bone abnormalities. IMPRESSION: Negative chest x-ray.
[2019-12-30 20:37] LABS: ABSOLUTE LYMPHOCYTES# (MANUAL) 0.5 10^3/uL (0.5-4.7); ABSOLUTE MONOCYTES # (MANUAL) 0.6 10^3/uL (0.1-1.4); BAND NEUTROPHILS % (MANUAL) 2 % (3-5); BASOPHILS % (MANUAL) 0 % (0-2); EOSINOPHILS % (MANUAL) 0 % (0-6); LYMPHOCYTES % (MANUAL) 4 % (13-45); MONOCYTES % (MANUAL) 5 % (3-13); PLATELET COMMENT DECREASED; RBC MORPHOLOGY COMMENT NORMO-CYTIC/CHROMIC; SEGMENTED NEUTROPHILS % (MAN) 89 % (42-78); TOTAL CELLS COUNTED 100
[2019-12-30] MEDS ORDERED: MORPHINE SULFATE 10 MG/ML INJ IV ONE (20:45)
[2019-12-30 20:53] LABS: APPEARANCE,URINE CLEAR; BILIRUBIN,URINE NEGATIVE (NEGATIVE); COLOR,URINE YELLOW; GLUCOSE, URINE NEGATIVE (NEGATIVE); KETONES,URINE 20 mg/dL (NEGATIVE); PROTEIN,URINE NEGATIVE (NEGATIVE); URINE SPECIFIC GRAVITY 1.016; UROBILINOGEN,URINE NEGATIVE mg/dL (<2.0)
[2019-12-30 22:06] VITALS: BP 136/87
--- NOTE | 2019-12-30 22:07 | RADIOLOGY REPORT (SQ) ---
EXAM DESCRIPTION: CT ABDOMEN PELVIS WITH IV CONTRAST COMPLETED DATE/TME: 12/30/2019 20:46 CLINICAL HISTORY: 39 years, Female, abdominal pain COMPARISON: MRI 12/22/2019. CT 07/07/2016 TECHNIQUE: [id number] Images stored on PACS. All CT scanners at this facility use dose modulation, iterative reconstruction, and/or weight based dosing when appropriate to reduce radiation dose to as low as reasonably achievable (ALARA). [facility]: Dose Right [facility]: CareDose [facility]: Dose Right [facility]: Teradose 4D [facility]: [employer] LIMITATIONS: None. FINDINGS: Limited evaluation of the lung bases is unremarkable. Osseous structures are grossly intact. The liver, spleen, adrenal glands, pancreas, kidneys are unremarkable. Status post cholecystectomy. Mild biliary ductal dilatation, as before. No gross evidence for bowel obstruction. Thinning of the anterior abdominal wall musculature, as before. Fluid in the endocervical canal. Correlate with phase of menstrual cycle. Left adnexal cyst measuring 2.6 x 2.6 cm. Normal appendix. No free air or free fluid IMPRESSION: 2.6 cm left adnexal cyst. This does not require follow-up imaging. No acute intra-abdominal/pelvic process. Recommendations for Benign-appearing simple adnexal cysts on CT with IV contrast and MR: (1)(2) Pre-menopause(3) (<= 50 years if LMP unknown): <=5 cm: No follow-up imaging recommended >5 cm - <=7 cm: US f/u 6-12 weeks >7 cm: Consider MR w/IVC or surgical evaluation Early post-menopause (<=5 years from LMP; > 50 years to <= 55 years if LMP unknown): <=3 cm: No follow-up imaging recommended (4) >3 cm - <=5 cm: US f/u 6-12 months (4) >5 cm - <=7 cm: US f/u promptly >7cm: Consider MR w/IVC or surgical evaluation Late post-menopause (>5 years from LMP; > 55 years if LMP unknown): <=3 cm: No follow-up imaging recommended >3 cm - <=7 cm: US f/u promptly >7 cm: Consider MR w/IVC or surgical evaluation (1)Recommendations based on the 2013 ACR White Paper for Managing Incidental Adnexal Findings on Abdominal and Pelvic CT and MRI: J Am Arjun Radiol 2013;10:675-681 (2)Excludes normal/benign findings such as ovarian calcifications w/o associated non-calcified mass, corpus luteum cyst, previously characterized cyst and cyst with documented stability in size and appearance for >2 years (3)Includes cysts with layering hemorrhage (4)If internal hemorrhage suspected in cyst, US f/u 6-12 weeks TECHNICAL DOCUMENTATION: Quality ID # [id number]: Final reports with documentation of one or more dose reduction techniques (e.g., Automated exposure control, adjustment of the mA and/or kV according to patient size, use of iterative reconstruction technique) copyright 2011 [employer]- All Rights Reserved
== END 2019-12-30 23:03 | disposition home or self-care (01) ==
LOC: ER 17:29
DX: N83.202 Unspecified ovarian cyst, left side (principal); R50.9 Fever, unspecified; R11.2 Nausea with vomiting, unspecified; R10.84 Generalized abdominal pain
CPT/HCPCS: 99285; 96375; 96365; 36415; 87040; 83605; 83690; 84703; 85025; 85610; 87077; 80053; 81001; 87186; 87150 ×26; 71045; 74177; J3490; J2765; J2270; J2405; J7120; J0696